=== PATIENT | male | born 1980 | race Caucasian/White ===

== ENCOUNTER 2018-11-05 07:50 | Outpatient (CLI) | payer BC, SELFPAY ==
--- NOTE | 2018-11-05 09:20 | DI.RAD_ITS ---
SYMPTOMS/DIAGNOSIS: SHOULDER JOINT PAIN RT, M25.511 RIGHT SHOULDER: Five views were obtained. No bony or soft tissue abnormality seen.
== END 2018-11-05 08:10 ==
PROVIDERS: PCP Nurse Practitioner Family; Visit Provider Nurse Practitioner Family
DX: M25.511 Pain in right shoulder (principal)
CPT/HCPCS: 73030

== ENCOUNTER 2018-11-13 00:39 | Outpatient (CLI) | payer BC, SELFPAY ==
--- NOTE | 2018-11-13 08:38 | DI.MRI_ITS ---
SYMPTOM/DIAGNOSIS: RT SHOULDER PAIN, M25.511, SWELLING NEAR SCAPULA RIGHT SHOULDER MRI: MRI examination of the shoulder was performed according to the usual protocol. There is mildly abnormal signal in the humeral head which may be on a degenerative basis. There is some narrowing of the acromial outlet with an inferior acromial spur causing some apparent impingement on supraspinatus tendon. Mildly abnormal signal noted in supraspinatus tendon consistent with a tendinosis. There is a small amount of fluid in the subacromial bursa. Mildly abnormal signal also noted in infraspinatus tendon near its humeral attachment. Superior edge of the supraspinatus shows abnormal signal as well and there may be a small partial thickness tear at this site. The biceps tendon shows normal signal and is normally positioned. Glenoid labrum appears intact as visualized. CONCLUSION: Findings suggesting supraspinatus and infraspinatus impingement at the acromial outlet. No full thickness or retracted rotator cuff tear seen. Small partial thickness tears and/or tendinosis may be present at a few sites as described above involving supraspinatus and infraspinatus and subscapularis. Please note that the patient also has question of swelling near the spine of the scapula and this area was not evaluated on this shoulder MRI. If clinically indicated, MR of the scapula could be obtained to rule out a mass.
== END 2018-11-13 00:59 ==
PROVIDERS: PCP Nurse Practitioner Family; Visit Provider Nurse Practitioner Family
DX: M25.511 Pain in right shoulder (principal); M75.41 Impingement syndrome of right shoulder; M79.89 Other specified soft tissue disorders
CPT/HCPCS: 73221

== ENCOUNTER 2019-08-18 12:03 | Outpatient (CLI) | payer BC, SELFPAY ==
--- NOTE | 2019-08-18 12:05 | DI.RAD_ITS ---
EXAM: XR FINGER RT INDEX INDICATION: pain and swelling post blunt trauma, M79.644. COMPARISON: No previous for comparison. TECHNIQUE: 2D digital imaging was performed. FINDINGS: There are 2 tiny faint densities anterior to the proximal interphalangeal joint of the right index fi nger. These are of uncertain acuity. These may represent old or acute avulsion fractures. Please c orrelate with patient's site of pain.
== END 2019-08-18 12:23 ==
PROVIDERS: PCP Nurse Practitioner Family; Visit Provider Nurse Practitioner Family
DX: M79.644 Pain in right finger(s) (principal); R22.31 Localized swelling, mass and lump, right upper limb; M89.8X4 Other specified disorders of bone, hand
CPT/HCPCS: 73140

== ENCOUNTER 2020-08-07 01:11 | Outpatient (CLI) | payer BC, SELFPAY ==
--- NOTE | 2020-08-07 | DI.RAD_ITS ---
EXAM: XR WRIST RT COMPLETE CLINICAL HISTORY: RT WRIST PAIN,M25.531. TECHNIQUE: 2D digital imaging was performed. COMPARISON: No exams were available for comparison FINDINGS: There is no evidence of fracture or carpal dislocation. No radiopaque foreign body. No significant ulnar variance. Bone density is normal. No osseous lesions. IMPRESSION: No fracture evident. DATA REPOSITORY: RADIATION DOSE DELIVERED:
== END 2020-08-07 01:31 ==
PROVIDERS: PCP Nurse Practitioner Family; Visit Provider Family Medicine
DX: M25.531 Pain in right wrist (principal)
CPT/HCPCS: 73110

== ENCOUNTER 2021-03-12 11:22 | Outpatient (REF) | payer BC, SELFPAY ==
[2021-03-14 15:24] LABS: Chlamydia Result Negative (Negative); GC Result Negative (Negative)
== END 2021-03-12 11:23 | disposition home or self-care (01) ==
LOC: LBN 11:22
PROVIDERS: PCP Nurse Practitioner Family; Visit Provider Nurse Practitioner Family
DX: N50.811 Right testicular pain (principal)
CPT/HCPCS: 87491; 87591

== ENCOUNTER 2021-05-29 10:52 | Outpatient (REF) | payer BC, SELFPAY ==
[2021-05-30 17:19] LABS: COVID-19 RT-PCR UVMMC Result Negative (Negative)
== END 2021-05-29 10:53 | disposition home or self-care (01) ==
LOC: LBN 10:52
PROVIDERS: PCP Nurse Practitioner Family; Visit Provider Family Medicine
DX: Z20.822 Contact with and (suspected) exposure to COVID-19 (principal); J02.9 Acute pharyngitis, unspecified
CPT/HCPCS: U0003

== ENCOUNTER 2023-01-29 20:40 | Emergency (ER) | payer BC, SELFPAY ==
[2023-01-29 20:50] VITALS: BP 126/70; PULSE 66; RESP 20; TEMP 36.6; O2SAT 97
--- NOTE | 2023-01-29 22:22 | W.ED.GENAD ---
Discharge Plan Disposition Patient Disposition: Home Condition: Stable Discharge Details Clinical Impression: Varicose veins of right lower extremity Primary Care Provider: Tamiko Delgado ED Provider: Susan Segovia Home Meds and New Rx's Prescriptions: No Action levofloxacin 500 mg tablet 500 mg PO DAILY Discharge Instructions Instructions: Phlebitis (ED) Additional Instructions: Please return as soon as possible for an ultrasound to rule out blood clots. Keep compression socks or similar on to the area elevate you may alternate ice and heat. Please take Tylenol or Ibuprofen with food every 4-6 hours as needed for pain and swelling. Follow up with primary care provider in 3-5 days. Return to ED sooner if any worsening or concerns. Increase oral fluids. Consider following up with a vascular surgeon or specialist for further management. Referrals: Tamiko Delgado [Primary Care Provider] - 3 days Discharge Data Discharge Date/Time-TO BE ENTERED AT DEPARTURE: 01/29/23 22:38 Medical Decision Making 42-year-old male presents to the ER with a chief complaint of varicose veins that are swollen and tender to the touch on his right leg. He noticed that this morning. 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 He has never noted pain in the past. No other associated symptoms or concerns no recent trauma. No surrounding erythema. Ultrasound Doppler ordered for tomorrow to rule out blood clot. Differential diagnosis includes thrombophlebitis versus DVT. Instructed patient to rest ice compression elevation. Follow-up for outpatient ultrasound soon as possible. He verbalized understanding. This text was generated using [employer] dictation system, please disregard any oddities of phrase or misspellings. HPI General Mode of arrival: ambulatory. Date/Time Provider Initiated Documentation: 01/29/23 20:41. Limitations to Documentation: no limitations. Information obtained by: patient, RN notes reviewed and old records reviewed. HPI Narrative: 42-year-old male presents to the ER with a chief complaint of varicose veins that are swollen and tender to the touch on his right leg. He noticed that this morning. 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 He has never noted pain in the past. No other associated symptoms or concerns no recent trauma. No surrounding erythema. Related Data Home Medications Medication Instructions Recorded Confirmed levofloxacin 500 mg tablet 500 mg PO DAILY 03/14/21 Allergies Allergy/AdvReac Type Severity Reaction Status Date / Time No Known Allergies Allergy Verified 08/18/19 12:29 General Stated Complaint: GenMedical REMBERTO: 4 Review of Systems All systems reviewed & are unremarkable except as noted in HPI and below Musculoskeletal Musculoskeletal: Reports as per HPI Integumentary/Breasts Skin/Breast: Reports as per HPI, Reports skin pain and Reports skin swelling PFSH All Active Problems (Updated 01/29/23 @ 22:35 by Susan Segovia NP) Varicose veins of right lower extremity (Acute) Finger pain, right (Acute) Medical History Allergic rhinitis Testicular pain Social History Smoking/Tobacco Use Status: Former Tobacco Use Smokeless tobacco user: chewing tobacco Smoking risk assessment performed?: Yes Alcohol Intake: current Alcohol Intake frequency: a few times a month Substance use type: does not use Seatbelt use: always Exam Extrem Right lower extremity: lower leg (veins run from ankle up into thigh) Details: localized swelling and palpable cord; no unusual warmth Course Vital Signs Vital signs: Vital Signs Temperature 36.6 C 01/29/23 20:50 Pulse 66 01/29/23 20:50 Respiratory Rate 20 01/29/23 20:50 Blood Pressure 126/70 01/29/23 20:50 Pulse Oximetry 97 01/29/23 20:50 Temperature 36.6 C 01/29/23 20:50 Pulse 66 01/29/23 20:50 Respiratory Rate 20 01/29/23 20:50 Blood Pressure 126/70 01/29/23 20:50 Blood Pressure Position Sitting 01/29/23 20:50 Pulse Oximetry 97 01/29/23 20:50 Oxygen Delivery Method Room Air 01/29/23 20:50 Oxygen Flow Rate 0 01/29/23 20:50 Pain Level 3 01/29/23 20:50
--- NOTE | 2023-01-30 01:23 | NUR.NOTE ---
Ultra sound req faxed to DI for RLE study álvaro. Patient advised to call [phone] to make appt.Nursing Note:
== END 2023-01-29 22:38 | disposition home or self-care (01) ==
PROVIDERS: Emergency Provider Registered Nurse Emergency; PCP Nurse Practitioner Family
DX: I83.91 Asymptomatic varicose veins of right lower extremity (principal)
CPT/HCPCS: 99281; 99282

== ENCOUNTER 2023-02-04 09:31 | Emergency (ER) | payer BC, SELFPAY ==
[2023-02-04 09:32] VITALS: BP 133/84; PULSE 55; RESP 15; TEMP 36.8; O2SAT 99
[2023-02-04 10:35] LABS: Abs Immature Grans 0.01 10^3/uL (0.0-0.06); Absolute Basophil Count 0.04 10^3/uL (0.0-0.2); Absolute Eosinophil Count 0.39 10^3/uL (0.0-0.7); Absolute Lymphocyte Count 1.58 10^3/uL (1.2-3.4); Absolute Monocyte Count 0.47 10^3/uL (0.1-0.8); Absolute Neutrophil Count 2.77 10^3/uL (1.2-6.7); Basophils % 0.8; Eosinophils % 7.4; HCT 41.1 % (40.0-50.0); HGB 13.3 g/dL (13.5-17.5); Immature Grans % 0.2; MCH 27.4 pg (27.0-33.0); MCHC 32.4 % (32.0-36.0); MCV 85 fL (80-95); MPV 11.5 fL (8.0-11.0); Monocytes % 8.9; Neutrophils % 52.7; Platelet Count 228 10^3/uL (130-400); RBC 4.85 10^6/uL (4.36-5.78); RDW 15.3 % (11.8-14.1); RDW-SD 47.5 fL; WBC 5.26 10^3/uL (4.4-10.8)
[2023-02-04 10:55] LABS: ALT 24 U/L (16-63); AST 28 U/L (15-37); Albumin 4.1 g/dL (3.4-5.0); Alkaline Phosphatase 62 U/L (46-116); Anion Gap 7.1 mmol/L (3-11); BUN 9 mg/dL (7-18); Bilirubin, Total 0.7 mg/dL (0.2-1.0); CO2 28.9 mmol/L (21.0-32.0); CREATININE 0.8 mg/dL (0.70-1.30); Calcium 9.3 mg/dL (8.5-10.1); Chloride 102 mmol/L (98-107); Estimated GFR 114.74 (mL/min/1.73m2); Glucose 95 mg/dL (74-106); Potassium 4.7 mmol/L (3.5-5.1); Sodium 138 mmol/L (136-145); Total Protein 7.9 g/dL (6.4-8.2)
--- NOTE | 2023-02-04 11:29 | NUR.NOTE ---
Nursing Note: Referral given to [facility] [place] [facility] [place] [place], varicose vein extensive supreficial thrombophlebitis/within the next month. Referral faxed to PCP for extensive superficial thrombophlebitis/within 1 week.
[2023-02-04] MEDS: Rivaroxaban 10 MG TABLET PO (11:47)
--- NOTE | 2023-02-04 11:59 | NUR.NOTE ---
Nursing Note: US sent electronically to [facility]. Labs and US report given to pt for continuing care @ [facility] Vascular Surgery.
--- NOTE | 2023-02-04 16:30 | ED.GENADUL_ITS ---
Discharge Plan Disposition Patient Disposition: Home Discharge Details Clinical Impression: Superficial thrombophlebitis Primary Care Provider: Tamiko Delgado ED Provider: Jenise Thrasher Home Meds and New Rx's Prescriptions: New Xarelto 10 mg tablet 10 mg PO DAILY Qty: 45 0RF Rx Instructions: for 35 days Continued levofloxacin 500 mg tablet 500 mg PO DAILY Patient Comments: RX complete 02/04/23 CT Discharge Instructions Instructions: Superficial Thrombophlebitis (ED), Deep Vein Thrombosis (ED) Additional Instructions: You have an extensive superficial thrombophlebitis, after discussion with [facility], recommendation is to start you on Xarelto 10 mg daily for 45 days The recommendation after that is to follow-up with vascular surgery for evaluation of your varicose vein for potential surgery While you are on Xarelto you are at significant increased risk of bleeding, if develop blood in your stool, headache, or any trauma to your head, abdomen, pelvis, blood in your urine you should be reassessed immediately Do not take ibuprofen products/nonsteroidals while taking this medication Please call your doctor in the let them know you will need close outpatient reassessment, you have also been placed on the list for follow-up Referrals: Tamiko Delgado [Primary Care Provider] - Discharge Data Discharge Date/Time-TO BE ENTERED AT DEPARTURE: 02/04/23 11:48 Medical Decision Making Patient with extensive varicosities with suspected superficial thrombophlebitis and reviewed ultrasound, this was discussed with radiologist Labs are ordered as my concern is that we may need to start anticoagulation given 15 cm superficial thrombophlebitis with extension to the thigh varicose vein Case was discussed with Dr. Hernandez, inspector tool at [facility] and the recommendation is for Xarelto 10 mg daily for 45 days He will be referred to vascular for vein stripping in the outpatient setting, there is no evidence of DVT or PE clinically at time of assessment Had a's and extensive discussion with this patient and he is aware that he cannot run in ultramarathon or continue running while this thrombophlebitis persists as the extension into the deep vasculature is significantly high He is aware of this is agreeable to taking Xarelto at this time, prescription was sent to pharmacy He will follow-up with [facility], referral has been supplied to vascular surgery and PCP for will be needed in the next week Return precautions reviewed and patient expressed understanding Precautions regarding taking Xarelto were reviewed in detail with patient HPI General Date/Time Provider Initiated Documentation: 02/04/23 09:44 . HPI Narrative: This 42-year-old male presents with persistent leg swelling and pain to her right leg, after ultrasound. He has a extensive superficial thrombophlebitis per radiology interpretation. Patient denies any new complaints at time of assessment. 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 He denies any known trauma to the affected area, recent flights, surgeries, long drives. Related Data Home Medications Medication Instructions Recorded Confirmed levofloxacin 500 mg tablet 500 mg PO DAILY 03/14/21 rivaroxaban 10 mg tablet (Xarelto) 10 mg PO DAILY #45 tabs 02/04/23 Previous Rx's Medication Instructions Recorded rivaroxaban 10 mg tablet (Xarelto) 10 mg PO DAILY #45 tabs 02/04/23 Allergies Allergy/AdvReac Type Severity Reaction Status Date / Time No Known Allergies Allergy Verified 02/04/23 09:39 General Stated Complaint: Recheck REMBERTO: 4 PFSH All Active Problems (Updated 02/04/23 @ 11:25 by EARNESTINE Hare) Varicose veins of right lower extremity (Acute) Superficial thrombophlebitis (Acute) Finger pain, right (Acute) Medical History Allergic rhinitis Testicular pain Social History Smoking/Tobacco Use Status: Former Tobacco Use Smokeless tobacco user: chewing tobacco Smoking risk assessment performed?: Yes Alcohol Intake: current Alcohol Intake frequency: a few times a month Drug use: Never Substance use type: does not use Housing: house Seatbelt use: always Do you feel safe at home: Yes Do you feel safe in your relationship?: Yes Course Vital Signs Vital signs: Vital Signs Temperature 36.8 C 02/04/23 09:32 Pulse 55 L 02/04/23 09:32 Respiratory Rate 15 02/04/23 09:32 Blood Pressure 133/84 02/04/23 09:32 Pulse Oximetry 99 02/04/23 09:32 Temperature 36.8 C 02/04/23 09:32 Temperature Source Temporal Artery Scan 02/04/23 09:32 Pulse 55 L 02/04/23 09:32 Respiratory Rate 15 02/04/23 09:32 Respiratory Effort Normal 02/04/23 09:37 Blood Pressure 133/84 02/04/23 09:32 Blood Pressure Position Sitting 02/04/23 09:32 Pulse Oximetry 99 02/04/23 09:32 Oxygen Delivery Method Room Air 02/04/23 09:32 Oxygen Flow Rate 0 02/04/23 09:32 Pain Level 2 02/04/23 09:32 Lab/Test Results Lab/Test Results: Laboratory Tests Range/Units 02/04/23 02/04/23 10:10 10:10 WBC (4.4-10.8) 10^3/uL 5.26 RBC (4.36-5.78) 10^6/uL 4.85 Hgb (13.5-17.5) g/dL 13.3 L Hct (40.0-50.0) % 41.1 MCV (80-95) fL 85 MCH (27.0-33.0) pg 27.4 MCHC (32.0-36.0) % 32.4 RDW (11.8-14.1) % 15.3 H Plt Count (130-400) 10^3/uL 228 MPV (8.0-11.0) fL 11.5 H Immature Gran % 0.2 Neutrophils % 52.7 Lymphocytes % 30.0 Monocytes % 8.9 Eosinophils % 7.4 Basophils % 0.8 Nucleated RBC % (0.0-0.3) % 0.0 Absolute Neutrophils (1.2-6.7) 10^3/uL 2.77 Absolute Lymphocytes (1.2-3.4) 10^3/uL 1.58 Absolute Monocytes (0.1-0.8) 10^3/uL 0.47 Absolute Eosinophils (0.0-0.7) 10^3/uL 0.39 Absolute Basophils (0.0-0.2) 10^3/uL 0.04 Sodium (136-145) mmol/L 138 Potassium (3.5-5.1) mmol/L 4.7 Chloride (98-107) mmol/L 102 Carbon Dioxide (21.0-32.0) mmol/L 28.9 Anion Gap (3-11) mmol/L 7.1 BUN (7-18) mg/dL 9 Creatinine (0.70-1.30) mg/dL 0.8 Est GFR (CKD-EPI 2020) (mL/min/1.73m2) 114.74 Glucose (74-106) mg/dL 95 Calcium (8.5-10.1) mg/dL 9.3 Total Bilirubin (0.2-1.0) mg/dL 0.7 AST (15-37) U/L 28 ALT (16-63) U/L 24 Alkaline Phosphatase (46-116) U/L 62 Total Protein (6.4-8.2) g/dL 7.9 Albumin (3.4-5.0) g/dL 4.1 PAWSS Have you Been Recently Intoxicated or Drunk Within the Last 30 days?: No Have you Ever Experienced Previous Episodes of Alcohol Withdrawal?: No Have you ever Experienced Withdrawal Seizures?: No Have you ever Experienced Delirium Tremens(DT)s?: No Have you ever undergone Alcohol Rehabilitation Treatment (i.e, inpt ot outpatient treatment programs)?: No Have you ever Experienced Blackouts?: No Have you ever Combined Alcohol with other Downers within the last 90 days?: No Have you ever Combined Alcohol with any other Substance of Abuse during the last 90 days?: No Result: 0
--- NOTE | 2023-02-05 15:51 | CMACTNOTE_ITS ---
Date of service: 02/05/23 Time of Service: 15:51 Care Management Activity Note Activity Note Text Activity Note Text: Vishal is seen in the ED for an extensive superficial thrombophlebitis. At the request of ED provider, ISAAC coordinates a referral to [facility] to assist patient with obtaining an appointment. He has [facility] [place] for insurance.
--- NOTE | 2023-02-05 15:51 | PDOC.CMACT ---
Date of service: 02/05/23 Time of Service: 15:51 Care Management Activity Note Activity Note Text Activity Note Text: Vishal is seen in the ED for an extensive superficial thrombophlebitis. At the request of ED provider, ISAAC coordinates a referral to [facility] to assist patient with obtaining an appointment. He has [facility] [place] for insurance.
== END 2023-02-04 11:48 | disposition home or self-care (01) ==
PROVIDERS: Emergency Provider Physician Assistant; PCP Nurse Practitioner Family
DX: I80.01 Phlebitis and thrombophlebitis of superficial vessels of right lower extremity (principal)
CPT/HCPCS: 80053; 99283; 85025; 99284

== ENCOUNTER → 2023-05-28 02:40 | Outpatient (CLI) | payer BC, SELFPAY ==
--- NOTE | 2023-05-28 | DI.RAD_ITS ---
Exam(s) XR ANKLE RT COMPLETE EXAM: XR ANKLE RT COMPLETE CLINICAL HISTORY: RT ANKLE PAIN M25.571. TECHNIQUE: 2D digital imaging was performed. Three views. COMPARISON: No exams were available for comparison FINDINGS: BONES: No acute fracture is present. No bony destructive lesion is seen. Talar dome is smooth. En thesophyte at Achilles insertion on the calcaneus. JOINTS: The ankle mortise is normally aligned. Tibiotalar joint space is maintained. SOFT TISSUE: Normal. IMPRESSION: Unremarkable radiographs of the right ankle. DATA REPOSITORY: RADIATION DOSE DELIVERED:
--- NOTE | 2023-05-28 | DI.RAD_ITS ---
Exam(s) XR FOOT RT COMPLETE EXAM: XR FOOT RT COMPLETE CLINICAL HISTORY: RT ANKLE PAIN M25.571. TECHNIQUE: 2D digital imaging was performed. Three views. COMPARISON: No exams were available for comparison FINDINGS: BONES: No acute fracture is present. No bony destructive lesion is seen. Enthesophyte at Achilles in sertion on calcaneus. JOINTS: No dislocation present. Minimal degenerative changes. SOFT TISSUE: Normal. IMPRESSION: No acute abnormality. DATA REPOSITORY: RADIATION DOSE DELIVERED:
== END ==
PROVIDERS: PCP Nurse Practitioner Family; Visit Provider Family Medicine
DX: M25.571 Pain in right ankle and joints of right foot (principal)
CPT/HCPCS: 73610; 73630

== ENCOUNTER 2023-06-24 21:13 | Outpatient (REF) | payer BC, SELFPAY ==
[2023-06-24 21:54] LABS: D-Dimer 375 ng/mlFEU (<500)
== END 2023-06-24 21:14 | disposition home or self-care (01) ==
LOC: LBN 21:13
PROVIDERS: PCP Nurse Practitioner Family; Visit Provider Nurse Practitioner Family
DX: M79.661 Pain in right lower leg (principal)
CPT/HCPCS: 85379

== ENCOUNTER 2024-08-02 02:56 | Outpatient (CLI) | payer BC, SELFPAY ==
--- NOTE | 2024-08-02 10:31 | DI.RAD_ITS ---
Exam(s) XR FOOT RT COMPLETE EXAM: XR FOOT RT COMPLETE CLINICAL HISTORY: PTTD right foot,M76.821. TECHNIQUE: 2D digital imaging was performed of the right foot. Three images were obtained. AP, obl ique and lateral views were obtained. COMPARISON: CR XR FOOT RT COMPLETE from 05/28/2023 FINDINGS: BONES: No acute fracture is present. No bony destructive lesion is seen. There is an enthesophyte at the posterior calcaneus. JOINTS: No dislocation present. SOFT TISSUE: There is soft tissue swelling lateral to the 5th metatarsophalangeal joint. No soft tis chicho calcification or underlying bony erosions. No soft tissue gas is present. IMPRESSION: 1. No acute abnormality is identified. 2. Mild soft tissue swelling lateral to the 5th MTP joint without evidence of erosion or arthritis. Please correlate clinically. DATA REPOSITORY: RADIATION DOSE DELIVERED:
--- NOTE | 2024-08-02 10:31 | DI.RAD_ITS ---
Exam(s) XR FOOT LT COMPLETE EXAM: XR FOOT LT COMPLETE CLINICAL HISTORY: Hallux IPJ pain,DJD LT ANKLE AND FOOT,M19.072. TECHNIQUE: 2D digital imaging was performed of the left foot. Three images were obtained. AP, obli que and lateral views were obtained. COMPARISON: No exams were available for comparison FINDINGS: BONES: No acute fracture is present. No bony destructive lesion is seen. There is a bipartite medial sesamoid adjacent to the head of the 1st metatarsal. There is a small enthesophyte at the posterior calcaneus. There is a small plantar calcaneal spur. JOINTS: No dislocation present. The joint spaces are well maintained. SOFT TISSUE: Normal. IMPRESSION: Calcaneal spurs. DATA REPOSITORY: RADIATION DOSE DELIVERED:
== END 2024-08-02 03:16 ==
LOC: DI 02:56
PROVIDERS: PCP Nurse Practitioner Family; Visit Provider Podiatrist
DX: M19.072 Primary osteoarthritis, left ankle and foot (principal); M76.821 Posterior tibial tendinitis, right leg
CPT/HCPCS: 73630

== ENCOUNTER 2024-08-26 13:33 | Outpatient (CLI) | payer BC, SELFPAY ==
--- NOTE | 2024-08-26 11:45 | DI.RAD_ITS ---
Exam(s) XR FOOT LT LIMITED EXAM: XR FOOT LT LIMITED CLINICAL HISTORY: M76.821 M72.822 TIBIAL TENDINITIS BILAT. TECHNIQUE: 2D digital imaging was performed of the left foot. One images were obtained. AP, obliqu e and lateral views were obtained. COMPARISON: CR XR FOOT LT COMPLETE from 08/02/2024 FINDINGS: Note is again made of bipartite medial sesamoid at the head of the 1st metatarsal bone. There is an accessory ossicle seen at the medial aspect of the navicular. The soft tissues are grossly unremarka ble. IMPRESSION: DATA REPOSITORY: RADIATION DOSE DELIVERED:
--- NOTE | 2024-08-26 11:45 | DI.RAD_ITS ---
Exam(s) XR FOOT RT LIMITED EXAM: XR FOOT RT LIMITED CLINICAL HISTORY: M76.821 TIBIAL TENDINITIS RT LEG. TECHNIQUE: 2D digital imaging was performed of the right foot. One images were obtained. Views w ere obtained. COMPARISON: CR XR FOOT RT COMPLETE from 05/28/2023 CR XR ANKLE RT COMPLETE from 05/28/2023 CR XR FOOT RT COMPLETE from 08/02/2024 FINDINGS: This is a limited examination. The bones are normally mineralized. The visualized joint spaces are well maintained. The soft tissues are unremarkable. IMPRESSION: DATA REPOSITORY: RADIATION DOSE DELIVERED:
--- OUTSIDE RECORDS SUMMARY | 2024-08-26 13:35 | XMS_ITS | Encounter Summary ---
Author Organization [facility] Address [address] [place] [address] Care Team Providers Care Group Reservations Coordinator Name Role Phone Gogo Monzon MD Primary Care Provider [phone] Reason for Visit * Reason Onset Date Comments Coordination Of Care 07/07/2023 Encounter Details Date Type Department Care Team (Late st Contact Info) Description 07/07/2023 Telephone [facility] Hematology & Oncology - [address] [address] Marcia Jackson PA-C [address] [place] [address], [address] [place] [address] Coordination Of Care Social History Tobacco Use Types Packs/Day Years Used Date Smoking Tobacco: Never Smokeless Tobacco: Former Chew Quit: 2022 Comments:Off all nicotine no w Alcohol Use Standard Drinks/Week Comments Yes 4 (1 standard drink = 0.6 oz pur e alcohol) Sex and Gender Information Value Date Recorded Sex Assigned at Not on file Legal Sex Male 10:44 EDT Gender Identity Male 03/03/2023 8:17 EDT Sexual Orientation Not on file documented as of this encounter Miscellaneous Notes * Telephone Encounter - Huey Andre - 07/07/2023 0905 EST Violetta called asking to speak to someone regarding patient's thrombis. States they are having a vein procedure scheduled the first week of July documented in this encounter Plan of Treatment Not on file documented as of this encounter Visit Diagnoses Not on filedocumented in this encounter Care Teams Group Reservations Coordinator Relationship Specialty Start Date End Date Gogo Monzon MD [address] [place] [address] PCP - General Family Medicine - Primary Care 03/03/23 documented as of this encounter
--- OUTSIDE RECORDS SUMMARY | 2024-08-26 13:35 | XMS_ITS | Encounter Summary ---
[place] [address] Care Team Providers Care Bottle Machine Operator Name Role Phone Tamiko Delgado SAQIB Primary Care Provider [phone] Reason for Referral * Consultation (Routine) - Closed Specialty Diagnoses / Procedures Referred By Fan lopez Referred To Contact Hematology and Oncology Diagnoses Thrombophlebitis Ever Hitchcock MD [address] [place] [address] [facility] [address] [place] [address] Referral ID Status Reason Start Date Expiration Date V isits Requested Visits Authorized [id number] Closed Consult, Test & Treat PCP Updated and/or Approved 02/12/2023 02/12/2024 6 6 Encounter Details Date Type Department Care Team (Late st Contact Info) Description 02/12/2023 Transcribe Orders eDH Incoming Referrals [phone] Ever Hitchcock MD [address] [place] [address] Thrombophlebitis Social History Tobacco Use Types Packs/Day Years Used Date Smoking Tobacco: Never Assessed Sex and Gender Information Value Date Recorded Sex Assigned at Not on file Gender Identity Not on file Sexual Orientation Not on file documented as of this encounter Plan of Treatment Scheduled Referrals Name Type Priority Associated Diagnoses Order Schedule Referral to Hematology and Oncology Outpatient Referral Routine Thrombophlebitis Ordered: 02/12/2023 documented as of this encounter Visit Diagnoses Diagnosis Thrombophlebitis Phlebitis and thrombophlebitis of unspecified site documented in this encounter Care Teams Bottle Machine Operator Relationship Specialty Start Date End Date Tamiko Delgado APRN [address] [place] [address] PCP - General Family Medicine 02/11/23 documented as of this encounter
--- OUTSIDE RECORDS SUMMARY | 2024-08-26 13:35 | XMS_ITS | Encounter Summary ---
Author Organization [facility] Address [facility] [place] [address] Care Team Providers Care Peanut Butter Maker Name Role Phone None Primary Care Provider Unavailabl e Encounter Details Date Type Department Care Team (Late st Contact Info) Description 02/04/2023 Telephone Hematology [place] [phone] Georgiana Mendez MD [facility] DR HEMATOLOGY/[place] [address] Social History Tobacco Use Types Packs/Day Years Used Date Smoking Tobacco: Never Assessed Sex and Gender Information Value Date Recorded Sex Assigned at Not on file Gender Identity Not on file Sexual Orientation Not on file documented as of this encounter Miscellaneous Notes * Telephone Encounter - Georgiana Mendez MD - 02/04/2023 11:03 AM EDT I was called from Jenise Thrasher at [facility] regarding the management for SVT. 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 He was found to have extensive superficious venous thrombosis for 15cm from medial thigh to distal calf. There was no evidence of DVT and he has no other risk factor for DVT except for varicose veins. Due to the extent of the disease, he is deemed to have SVT with elevated risk features, where prophylactic anticoagulation for 45 days is indicated. The best evidence exists for fondaparinux but due to the ease of administration, using rivaroxaban 10mg daily is an acceptable alternative. So I recommended rivaroxaban 10mg daily for 45 days. Georgiana Mendez MD [facility] Hematology Oncology Fellow Page [phone] documented in this encounter Plan of Treatment Not on file documented as of this encounter Visit Diagnoses Not on filedocumented in this encounter Care Teams Peanut Butter Maker Relationship Specialty Start Date End Date None None PCP - General 02/04/23 02/10/23 documented as of this encounter
--- OUTSIDE RECORDS SUMMARY | 2024-08-26 13:35 | XMS_ITS | Encounter Summary ---
Author Organization [facility] [place] [address] Care Team Providers Care Shank Piece Tacker Name Role Phone Tamiko Delgado APRN Primary Care Provider [phone] Encounter Details Date Type Department Care Team (Late st Contact Info) Description 06/17/2023 Telephone [place] [phone] Floresita Sebastian Social History Tobacco Use Types Packs/Day Years Used Date Smoking Tobacco: Never Smokeless Tobacco: Former Chew Quit: 2021 Sex and Gender Information Value Date Recorded Sex Assigned at Not on file Gender Identity Not on file Sexual Orientation Not on file documented as of this encounter Miscellaneous Notes * Telephone Encounter - Floresita Sebastian - 06/17/2023 1:40 PM EST Received call from Mr. Ramirez looking to schedule Surgery with Dr. Velasco - We have scheduled this for 07/30/23. Letter sent. documented in this encounter Plan of Treatment Not on file documented as of this encounter Visit Diagnoses Not on filedocumented in this encounter Care Teams Shank Piece Tacker Relationship Specialty Start Date End Date Tamiko Delgado APRN [address] [place] [address] PCP - General Family Medicine 02/11/23 documented as of this encounter
--- OUTSIDE RECORDS SUMMARY | 2024-08-26 13:35 | XMS_ITS | Encounter Summary ---
Author Organization [facility] [place] [address] Care Team Providers Care Engraver Lettering Name Role Phone DannyTamiko SAQIB Primary Care Provider [phone] Reason for Referral * Diagnostic Test (Routine) - Closed Specialty Diagnoses / Procedures Referred By Fan lopez Referred To Contact Diagnoses Varicose veins of right lower extremity with pain Thrombophlebitis Procedures LE Unilateral Valvular Incomp Study Mikayla Cesar APRN [facility] [place] [address] [facility] [address] [place] [address] Referral ID Status Reason Start Date Expiration Date V isits Requested Visits Authorized [id number] Closed Specialty Service Requested 02/13/2023 02/13/2024 1 1 Encounter Details Date Type Department Care Team (Late st Contact Info) Description 02/13/2023 Orders [place] [address] Mikayla Cesar TAFFY CANDY MAKER [facility] [place] [address] Varicose veins of right lower extremity with pain; Thrombophlebitis Social History Tobacco Use Types Packs/Day Years Used Date Smoking Tobacco: Never Assessed Sex and Gender Information Value Date Recorded Sex Assigned at Not on file Gender Identity Not on file Sexual Orientation Not on file documented as of this encounter Plan of Treatment Not on file documented as of this encounter Results * LE Unilateral Valvular Incomp Study (04/09/2023 10:49 AM EDT) VB Text Report Department: Vascular Surgery Lab Patient: [id number] (VISHAL MÁRQUEZ) CPT: 60518 Referring Physician: MIKAYLA CESAR ?? Phone: Indications: RLE thrombophlebitis, varicose veins ? Venous insufficiency Patient Positioning: ??Reverse Trendelenburg Findings: Right ?Reflux?Diameter (mm) ??Depth (mm) ?? Common Femoral Vein ??Competent ? Femoral Vein ? Competent ? Popliteal ?Competent ? GSV, Near SFJ ?Reflux ? 3.3 ?10.3 ?? GSV, Proximal Thigh ??Competent ?3.1 ? 8.2 ?? GSV, Mid Thigh ? Reflux ? 8.9 ? 5.9 ?? GSV, Distal Thigh ?Reflux ? 2.9 ? 5.9 ?? GSV, ??Knee ? Competent ?2.5 ? 6.5 ?? GSV Prox Calf ?Competent ?3.0 ? 4.6 ?? GSV, Mid Calf ?Reflux ? 3.0 ? 2.7 ?? GSV, Distal Calf ? Reflux ? 2.5 ? 4.3 ?? SSV ?Competent ?4.6 ? 3.9 ?? Prox ASV ? Competent ?3.4 ? 8.0 ?? Mid ASV ?Competent ?2.0 ? 4.3 ?? Interpretation: Right: Findings consistent with superficial venous valvular incompetence at the saphenofemoral junction and great saphenous vein from the mid thigh to distal thigh, and from mid calf to distal calf (reflux time >4.3 seconds). Incompetent infantry weapons officer vein (5 mm diameter) originates from the GSV at mid thigh. Varicose veins originate from the GSV at the distal thigh and at mid calf. Superficial thrombus in the varicose veins at proximal to mid calf, without great saphenous vein phlebitis. No evidence of deep venous valvular incompetence. No evidence of deep (femoropopliteal) thrombus. Comparison: ??No previous study in our vascular lab database for comparison. Electronically Signed by: MILADYS BUCK III, MD on 2023-04-09 12:15:22 PM [facility] VB Text Report End of Report [facility] 04/09/2023 10:4 9 AM EDT Mikayla Cesar APRN VASCULAR ORDERABLES [facility] documented in this encounter Visit Diagnoses Diagnosis Varicose veins of right lower extremity with pain Varicose veins of lower extremities with other complications Thrombophlebitis Phlebitis and thrombophlebitis of unspecified site documented in this encounter Care Teams Engraver Lettering Relationship Specialty Start Date End Date Tamiko Delgado APRN [address] [place] [address] PCP - General Family Medicine 02/11/23 documented as of this encounter
--- OUTSIDE RECORDS SUMMARY | 2024-08-26 13:35 | XMS_ITS | Encounter Summary ---
Author Organization [facility] Address [address] [place] [address] Care Team Providers Care Rolfer Name Role Phone Gogo Monzon MD Primary Care Provider [phone] Reason for Visit * Reason Onset Date Comments Results 04/10/2023 Encounter Details Date Type Department Care Team (Late st Contact Info) Description 04/10/2023 Telephone [facility] Hematology & Oncology - [address] [id number] Marcia Jackson PA-C [address] [place] [address], [address] [place] [address] Results Social History Tobacco Use Types Packs/Day Years [...] encounter Miscellaneous Notes * Telephone Encounter - Mary Jo Ng - 04/10/2023 1341 EDT LABS ENTERED FROM [facility]. Mary Jo Ng 04/10/2023 13:41 documented in this encounter Plan of Treatment Not on file documented as of this encounter Procedures Procedure Name Priority Date/Time Associated Diagnosis Comments COMPREHENSIVE METABOLIC PANEL (ONCOLOGY USE ONLY-INC MG) Routine 02/04/2023 COMPLETE BLOOD COUNT AND DIFFERENTIAL Routine 02/04/2023 documented in this encounter Results * COMPREHENSIVE METABOLIC PANEL (ONCOLOGY USE ONLY-INC MG) (02/04/2023) Calcium, External 9.3 mg/dL [facility] CO2, External 28.9 mmol/L [facility] AST, External 28 U/L [facility] ALT, External 24 [facility] Bilirubin, Total, External 0.7 [facility] Creatinine, External 0.8 mg/dL [facility] Calculated Calcium, External [facility] Anion Gap, External [facility] Total Protein, External 7.9 [facility] Potassium, External 4.7 mmol/L [facility] Total Alkaline Phosphatase, External 62 [facility] Albumin, External 4.1 g/dL [facility] BUN, External 9 mg/dL [facility] GFR, Calculated, External 114.74 [facility] Fasting?, External [facility] Chloride, External 102 mmol/L [facility] Glucose, Serum, External 95 mg/dL [facility] Sodium, External 138 mmol/L [facility] Magnesium, External [facility] Blood VENOUS BLOOD / Unknown 02/04/2023 us Historical Provider CHEMISTRY & BLOOD GAS ORD ERABLES Final Result [facility] * (ABNORMAL) COMPLETE BLOOD COUNT AND DIFFERENTIAL (02/04/2023) WBC, External 5.26 [facility] RBC, External 4.85 [facility] Hemoglobin, External 13.3(A) 13.5 - 17.5 % [facility] HCT, External 41.1 [facility] MCV, External 85 [facility] MCH, External 27.4 g/dL [facility] MCHC, External 32.4 g/dL [facility] PLT, External 228 [facility] RDW-CV, External 15.3(A) 11.8 - 14.1 [facility] Neutrophils, External 52.7 [facility] Lymphocytes, External 30.0 [facility] Monocytes, External 8.9 [facility] Eosinophils, External 7.4 [facility] Basophils, External 0.8 [facility] ABS Neutrophils, External 2.77 [facility] ABS Lymphs, External 1.58 [facility] ABS Monocytes, External 0.47 [facility] ABS Eosinophils, External 0.39 [facility] ABS Basophils, External 0.04 [facility] Blood VENOUS BLOOD / Unknown 02/04/2023 us Historical Provider PACKAGES [employer] DNA PROBE KYLE KING Final Result [facility] documented in this encounter Visit Diagnoses Not on filedocumented in this encounter Care Teams Rolfer Relationship Specialty Start Date End Date Gogo Monzon MD [address] [place] [address] PCP - General Family Medicine - Primary Care 03/03/23 documented as of this encounter
--- OUTSIDE RECORDS SUMMARY | 2024-08-26 13:35 | XMS_ITS | Encounter Summary ---
[place] [address] Care Team Providers Care Auction Clerk Name Role Phone Tamiko Delgado SAQIB Primary Care Provider [phone] Reason for Visit * Auth/Cert (Routine) Specialty Diagnoses / Procedures Referred By Fan lopez Referred To Contact Diagnoses superficial phlebitis, venous insufficiency Procedures PRO ENDOVENOUS RF, 1ST VEIN PRO PHLEB VEINS - EXTREM 20+ ENDOVENOUS ABLATION THERAPY OF INCOMPETENT VEIN, EXTREMITY, FIRST VEIN (WRVU 5.3) STAB PHLEBECTOMY LEONARDO VEINS 1 EXTREMITY MORE 20 INCISIONS (WRVU 6) Juni Velasco III, MD [address] [place] [address] [place] [address] [facility] Referral ID Status Reason Start Date Expiration Date Visits Re quested Visits Authorized [id number] 1 1 Encounter Details Date Type Department Care Team (Late st Contact Info) Description 07/30/2023 12:25 PM EST - 07/30/2023 3:15 PM EST Surgery [facility] [place] [address] Juni Velasco III, MD [address] [place] [address] [place] [address] ENDOVENOUS ABLATION THERAPY OF INCOMPETENT VEIN, EXTREMITY, FIRST VEIN (WRVU 5.3) Social History Tobacco Use Types Packs/Day Years Used Date Smoking Tobacco: Never Smokeless Tobacco: Former Chew Quit: 2021 Tobacco Cessation:Counseling Given: Not Answered Alcohol Use Standard Drinks/Week Comments Yes 1 (1 standard drink = 0.6 oz pur e alcohol) [facility] Inpatient Questions Answer Date Recorded Does Anyone Try to Keep You From Having Contact with Others or Doing Things Outside Your Home? no 07/30/2023 Feels Threatened by Someone no 09/2023 Feels Unsafe at Home or Work/School no 07/30/2023 Physical Signs of Abuse Present no 07/30/2023 Sex and Gender Information Value Date Recorded Sex Assigned at Not on file Gender Identity Not on file Sexual Orientation Not on file documented as of this encounter Last Filed Vital Signs Vital Sign Reading Time Taken Comments Blood Pressure 153/92 07/30/2023 2:31 PM EST Pulse 70 07/30/2023 2:31 PM EST Temperature 36.5 ??C (97.7 ??F) 07/30/2023 2:00 PM ES T Respiratory Rate 16 07/30/2023 2:31 PM EST Oxygen Saturation 100% 07/30/2023 2:31 PM EST Inhaled Oxygen Concentration - - Weight 81.6 kg (180 lb) 07/30/2023 11:17 AM EST Height 182.9 cm (6') 07/30/2023 11:17 AM EST Body Mass Index 24.41 07/30/2023 11:17 AM EST documented in this encounter Discharge Instructions * Discharge Instructions* Lucy Gutierrez RN - 07/30/2023 11:13 AM EST General Anesthesia Discharge Instructions Go home and rest. You may be sleepy for several hours. Take it easy as sudden position changes may cause nausea and/or dizziness. Use caution on stairs. Do not smoke if you are alone. Follow a light to regular diet as tolerated today. If nausea occurs, start with clear liquids, and progress slowly to a regular diet. Do not drive, operate machinery, drink alcoholic beverages or make any legal decisions after havinggeneral anesthesia. The medications given change your reaction time and alter your judgement. IV site -- slight redness is normal, you can use warm compresses. If tenderness and redness increases or foul drainage occurs, please contact your M.D. Patients who have had endotracheal tubes/LMA (tubes used by the anesthesia staff to ensure a safe airway during your operation) may have a sore throat. This is normal and cold liquids or soothing lozenges will help ease this discomfort. Narcotic pain medications can cause constipation, please ask the surgeons office what they recommend for prevention of this. Some non-pharmaceutical means of constipation prevention include increasing intake of fluids, eating more fruits and vegetables as well as fruit juices. If you are uncomfortable and/or unable to urinate within 8 hours of discharge and it is before 5 pm, call your physician. If it is after 5pm go to the closest emergency room or call the hospital still operator at [phone] and ask for physician button facing machine operator covering for your physician. Questions or problems after 5pm or on a weekend: Call the [facility] still operator at and ask for the physician button facing machine operator covering for your doctor. At 1130 am you received 975 mg of acetaminophen- Your next dose should not be taken before 8 hours have passed or as advised by your provider. Next dose not before- 730 PM You should not take more than a total of 3000 mg of acetaminophen in a 24 hour period. You received 30mg of Toradol which is another form of an NSAID medication at 1:45pm. Your next doseshould not be taken before 7:45pm today. * Patient Instructions* Perez Rodriguez PA - 07/30/2023 12:04 PM EST Instructions following Vein Ablation and Stab Phlebectomy Medications: Please start taking your blood thinner, Xarelto, on 07/31/22 in the morning. This is a once a day pill that you will take for two weeks. Activity: You should start walking the day after surgery. When sitting, try to elevate and prop your leg up on pillows as much as possible. No vigorous activity (such as jogging, running, biking) forat least 1 week or until cleared to do so at your follow-up visit. Wound care: Keep wraps on your leg for the next 48 hours. At that point you can remove all dressings and shower. Do not take a bath or swim for at least 2 weeks. You may have Dermabond (medical glue)or steri-strips (pieces of tape) on your skin. Keep them on until they fall off on their own. If you notice the steri-strips begin to peel off, you may trim them. Bruising around the incisions can benormal and will fade over time. Pain Medication: You may take acetaminophen (Tylenol) and ibuprofen (Advil, Motrin) for pain. If your surgeon provides you prescription pain medicine (opioid) you should not drive for 8 hours after taking it. Call Doctor for: Please call if you notice worsening redness or foul-smelling drainage from incision(s), if your pain is not controlled by pain medication or for fevers greater than 101.3F. Follow-up: You will have an ultrasound in 1-7 days after your procedure. If you do not receive the ultrasound appointment at the time of discharge, you will be called with a date and time. You will be seen by your surgeon (or associate provider) in the Vascular Clinic in approximately 2 weeks. Thisclinic appointment will be mailed to you. Please call our office ([phone]) if you do not receive the ultrasound appointment within 2 days or the clinic appointment within 10 days. For any questions or concerns please call [phone] documented in this encounter Medications at Time of Discharge Medication Sig Dispensed Refills Start Date End Date rivaroxaban (Xarelto) 10 mg tablet Take 1 tablet by mouth daily. 14 tablet 07/31/2023 HYDROcodone-acetaminophe n (Schroeder) 5-325 mg tablet Take 1 tablet by mouth every 6 hours as needed for Pain. 10 tablet 07/30/2023 08/12/2023 documented as of this encounter Progress Notes * Lucy Gutierrez RN - 07/30/2023 2:43 PM EST Discharge instructions and medications reviewed with patient and escort. All questions answered andwritten copy sent home with patient. Patient ambulated to car for discharge accompanied by [facility] staff member. documented in this encounter H&P Notes * Perez Rodriguez PA - 07/30/2023 9:41 AM EST Vascular Surgery History and Physical HPI: Per patient's last office visit with Dr. Velasco on 04/09/23: Reason for Visit: Symptomatic right lower extremity varicose veins with phlebitis, venous insufficiency. History of Present Illness: Vishal Ramirez is a 43 y.o. male seen in consultation at the request of Jenise Thrasher PA-C regardingright lower extremity venous problems as above. Right lower extremity venous duplex with reflux testing was performed today and is reviewed below, along with prior imaging studies. He has noted substantial varicose veins of the right lower extremity for 5 or 10 years. Beginning on January 29, he had significant pain localized to the varicosities of the right medial calf. On February 04, phlebitis in varicose veins was documented on duplex at [facility]. He denies any antecedent history of s ignificant travel, immobilization, surgery, or injury. He had 6 weeks of Xarelto---pain in the varicosities resolved within 10 days of beginning Xarelto therapy. He reports 1 other brief episode of pain 2 days ago, unlike the previous and transient. He has no pain currently. This is his first episode of phlebitis. 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 He denies right lower extremity swelling or ulceration. He does note that his mother had varicose veinsand may have had venous blood clots when she had cancer. He denies lower extremity surgery. He had a fracture of the ankle at a young age. He has been using compressive sleeves and knee-high compression stockings since phlebitis onset, he is not certain whether they provide clinical benefit. He sawMarcia Jackson PA-C at [facility] recently, who recommended 10 mg of Xarelto daily for 2 weeks after lower extremity venous surgery, and consideration of venous procedures to eliminate risk of recurrent phlebitis. She did not recommend hypercoagulable testing or anticoagulation currently. He is otherwise quite healthy. He denies heart problems, chest pain or syncope. He denies sleep apnea or dyspnea. He never smoked, did use smokeless tobacco. He denies abdominal pain or problems. Patient denies changes to medical history, recent illnesses, chest pain, dyspnea, fevers, chills, nausea, vomiting. There are no hospital problems to display for this patient. Active Non-Hospital Problems Diagnosis Varicose veins of lower extremities with complications Venous insufficiency of right lower extremity Phlebitis of superficial vein of right lower extremity Review of Systems: A full review encompassing at least 10 organ systems including general, neuro, pulm, cardiac, GI, , MSK, Endo, and Psych was negative other than listed in the HPI. Past Medical History: History reviewed. No pertinent past medical history. Past Surgical History: History reviewed. No pertinent surgical history. Functional Status/Social Hx: No history of tobacco smoking although used chewing tobacco in the past. 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: Social History Socioeconomic History Marital status: Spouse name: Not on file Number of children: Not on file Years of education: Not on file Highest education level: Not on file Occupational History Not on file Tobacco Use Smoking status: Never Smokeless tobacco: Former Types: Chew Quit date: 2021 Substance and Sexual Activity Alcohol use: Not on file Drug use: Not on file Sexual activity: Not on file Other Topics Concern Not on file Social History Narrative Not on file Social Determinants of Health Financial Resource Strain: Not on file Food Insecurity: Not on file Transportation Needs: Not on file Physical Activity: Not on file Intimate Partner Violence: Not on file Housing Stability: Not on file Family Hx: His mother may have had venous blood clots when she had cancer, Mother with varicose veins. History reviewed. No pertinent family history. Medications: No current facility-administered medications on file prior to encounter. No current outpatient medications on file prior to encounter. Allergies: No Known Allergies Physical Exam: Vital Signs: Temp: -- Heart Rate: -- Resp: -- BP: -- SpO2: -- Heart Rate from SpO2: -- BMI: General - NAD, seen with his Neuro - Alert and Oriented, Motor Sensory grossly intact Skin - See lower extremity examination below No carotid bruits Cardiac - RRR, no murmurs Lungs - Clear, equal Abd - Soft, NT, ND, No palpable pulsatile masses Extremities - Right lower extremity: There are large varicose veins from medial distal thigh, throughout the medial lower leg--- these measure up to 8 mm diameter. There is some palpable residual phlebitis of varicosities at the proximal to mid medial calf. There is no erythema or evidence for acute phlebitis. There is no stasis dermatitis, ulcer, or edema. DP and PT pulses are readily palpable. Left lower extremity: No varicose veins. There is no stasis dermatitis, ulcer, or edema. DP and PT pulses are readily palpable. Labs: No results for input(s): WBC, HGB, HCT, PLATELET in the last 72 hours. No results for input(s): NA, K, CL, CO2, BUN, CREATININE, PHOS, CALCIUM in the last72 hours. Studies/Imaging: Right lower extremity venous duplex at [facility] 02/04/23 (report): No DVT, there is phlebitis of varicose veins of the medial distal thigh through distal calf. Right lower extremity venous duplex at [facility] 04/09/23: Findings: Segment Right Reflux? Diameter (mm) Depth (mm) Common Femoral Vein Competent Femoral Vein Competent Popliteal Competent GSV, Near SFJ Reflux 3.3 10.3 GSV, Proximal Thigh Competent 3.1 8.2 GSV, Mid Thigh Reflux 8.9 5.9 GSV, Distal Thigh Reflux 2.9 5.9 GSV, Knee Competent 2.5 6.5 GSV Prox Calf Competent 3.0 4.6 GSV, Mid Calf Reflux 3.0 2.7 GSV, Distal Calf Reflux 2.5 4.3 SSV Competent 4.6 3.9 Prox ASV Competent 3.4 8.0 Mid ASV Competent 2.0 4.3 Interpretation: Right: Findings consistent with superficial venous valvular incompetence at the saphenofemoral junction and great saphenous vein from the mid thigh to distal thigh, and from mid calf to distal calf (reflux time >4.3 seconds). Incompetent advanced practice professional vein (5 mm diameter) originates from the GSV atmid thigh. Varicose veins originate from the GSV at the distal thigh and at mid calf. Superficial thrombus in the varicose veins at proximal to mid calf, without great saphenous vein phlebitis. No evidence of deep venous valvular incompetence. No evidence of deep (femoropopliteal) thrombus. Comparison: No previous study in our vascular lab database for comparison. Assessment and Plan: Per patient's last office vist with Dr. Velasco on 04/09/23: Vishal Ramirez presents with symptomatic right lower extremity varicose veins, with superficial phlebitis in varicose veins of the right leg that began in January. This is his first episode of phlebitis, may have been precipitated by running but there is no other obvious etiology. He has had resolution of pain at the site, is using compression stockings. He saw Marcia Jackson PA-C at [facility] recently, who recommended 10 mg of Xarelto daily for 2 weeks after lower extremity venous surgery, and consideration of venous procedures to eliminate risk of recurrent phlebitis. She did not recommend hypercoagulable testing or anticoagulation currently. Right lower extremity venous duplex today demonstrates no deep venous incompetence or DVT. The great saphenous vein is incompetent from a deep venous advanced practice professional at mid-thigh to the varicose veins of proximal to mid calf. The great saphenous is enlarged to as much as 8.9 mm mid-thigh, it does not have phlebitis, but there is residual phlebitis in medial calf varicose veins. There is no short or anterior saphenous vein incompetence or phlebitis. I discussed his superficial phlebitis at length. Given that he had phlebitis only in varicose veins, not in the great saphenous vein and certainly not approaching the deep veins, his 6-week course ofXarelto in January is more than adequate. I did discuss with him the marginal data that are available for treatment of superficial phlebitis that does not approach the deep veins----there may be a very small benefits of 6 weeks of therapy but certainly not more than that. There is also no role for hypercoagulable testing, as noted by his hematology consultation. There is a risk of phlebitis recurrence, and of ascending phlebitis in the great saphenous vein, which could reach the deep veins at either mid thigh or saphenofemoral junction. However, it is not a certainty that he will have recurrent phlebitis. I recommended compression stocking therapy to minimize the risk of phlebitis recurrence. I would not restrict him from running, I am not certain it is a good idea to run ultramarathons however. I also discussed the natural history of varicose vein disease, which rarely progresses to stasis dermatitis and ulceration. He is at some risk of recurrent phlebitis. I recommended compression stockings regardless of any other treatment. I discussed treatment of the right great saphenous vein, to eliminate superficial venous incompetence, decompress the varicosities, and reduce the risk of varicose vein recurrence---this will also eliminate the possibility of ascending phlebitis from the varicosities. I discussed varicose vein excision, which will eliminate his current symptoms and the possibility of recurrent phlebitis in these varicosities; sclerotherapy is not indicated for varicosities of this size. I discussed radiofrequency ablation or open stripping of the right great saphenous vein. Regarding ablation, I reviewed the risks of failure to ablate (2%), DVT (1-2 %), skin burn, nerve injury, and bleeding. Regarding open stripping as well as varicose vein excision, I reviewed the risks of bleeding, infection, wound problems, hematoma, pain, scarring, nerve injury, and DVT. Vein recurrence or progression of venous disease are possible. I discussed the typical recovery from these procedures, estimated 2 weeks out of work or with limited activities, except for radiofrequency ablation alone which tends to have a shorter recovery. He elects to proceed with right great saphenous vein radiofrequency ablation, and right lower extremity stab phlebectomy. This will be performed on an outpatient basis under general anesthesia, and is low risk. He is otherwise healthy (runs ultramarathons), and a reasonable candidate [facility]. It will be several months before we can schedule his operation, but that time is valuable to allow additional resolution of phlebitis, allowing a more complete and less invasive vein excision. We will plan 2 weeks of Xarelto, 10 mg daily, postoperatively. Additionally, there is always an early postoperative duplex to evaluate the ablation, which will ensure that he does not have DVT. Patient has been consented and is agreeable to proceed as planned. EARNESTINE Daugherty 07/30/2023 Pager: [phone] documented in this encounter Miscellaneous Notes * Op Note - Juni Velasco III, MD - 07/30/2023 12:32 PM EST [facility] Operative Note Patient Name: Vishal Ramirez : [id number] MR#: [id number] Case Date: 07/30/2023 Surgeon: Surgeon(s) and Role: * Juni Velasco III, MD - Primary * Perez Rodriguez PA - Physician Communications Assistant Preoperative diagnosis: superficial phlebitis, venous insufficiency Postoperative diagnosis: superficial phlebitis, venous insufficiency Procedure(s) (LRB): ENDOVENOUS ABLATION THERAPY OF INCOMPETENT VEIN, EXTREMITY, FIRST VEIN (WRVU 5.3) (Right) STAB PHLEBECTOMY LEONARDO VEINS 1 EXTREMITY 10-20 INCISIONS (WRVU 4.8) (Right) 1. Right great saphenous vein radiofrequency ablation 2. Right lower extremity stab phlebectomy, 20 incisions Anesthesia: General Estimated Blood Loss: 5 mL Specimens removed during surgery: Varicose veins, not sent to pathology Disposition: To postoperative recovery, extubated, for planned home discharge Condition: Stable (Please see the Surgical Encounter Summary for any Implant and Specimen details pertinent to this patient.) Findings: The right great saphenous vein was enlarged from the saphenofemoral junction into the lower leg, but also had quite a large dilation at mid thigh, where it also had a several centimeter long communication with the deep veins, as anticipated. It was then fairly large throughout the distal thigh, somewhat smaller at the knee and proximal calf. It gave off substantial varicose veins at the distal thigh and in the calf. It was treated with radiofrequency ablation from the mid-proximal calf to within several centimeter of the saphenofemoral junction. Following ablation, the great saphenous vein was hyperechoic and thickened. There was no immediate common femoral vein/saphenofemoral junction DVT/thrombus. Stab phlebectomy was performed of large varicosities from the medial mid thigh, throughout the lower leg to shortly above the medial malleolus. I noted chronic phlebitis in many of the varicosities of the proximal to mid medial calf, but was able to remove them completely despite some above averageadhesion/scarring. I prescribed Xarelto 10 mg daily for 2 weeks after this operation, as recommended by hematology given his phlebitis. I asked him to start this tomorrow morning. HPI/Surgical Indications: Vishal Ramirez presents with symptomatic right lower extremity varicose veins, with superficial phlebitis in varicose veins of the right leg that began in January. This is his first episode of phlebitis, may have been precipitated by running but there is no other obvious etiology. He has had resolution of pain at the site, is using compression stockings. He saw Marcia Jackson PA-C at [facility] recently, who recommended 10 mg of Xarelto daily for 2 weeks after lower extremity venous surgery, and consideration of venous procedures to eliminate risk of recurrent phlebitis. She did not recommend hypercoagulable testing or anticoagulation currently. Right lower extremity venous duplex today demonstrates no deep venous incompetence or DVT. The great saphenous vein is incompetent from a deep venous advanced practice professional at mid-thigh to the varicose veins of proximal to mid calf. The great saphenous is enlarged to as much as 8.9 mm mid-thigh, it does not have phlebitis, but there is residual phlebitis in medial calf varicose veins. There is no short or anterior saphenous vein incompetence or phlebitis. He elects to proceed with right great saphenous vein radiofrequency ablation, and right lower extremity stab phlebectomy. Procedure Description: Vishal Ramirez was met in the preoperative area at the [facility] at [facility], and all relevant consents were signed. In a standing position, the varicose veins of the right leg were marked with permanent marker, and he concurred with the veins as marked. He was then brought to the operating room and placed supine. After induction of general anesthesia, the right lower extremity from thetoes to the abdominal wall was circumferentially prepped with chlorhexidine and sterilely draped. The foot was excluded in an impermeable bag. After a standard timeout during which patient, site, andprocedure were identified, the right great saphenous vein was mapped from the saphenofemoral junction to the lower leg, with findings as above. The great saphenous vein at the mid-- proximal lower leg was accessed with ultrasound guidance with a micropuncture needle without difficulty. The wire wasconfirmed to be intravenous, and a 7 Scottish sheath was placed. The radiofrequency catheter was advanced up to the level of the saphenofemoral junction (required 0.025 inch Glidewire assistance to cross the mid thigh great saphenous dilation), then pulled down to approximately 4 cm from the SFJ. This was confirmed in a vertical and horizontal view. It was marked at this location. Then the standardtumescent mixture consisting of saline, epinephrine and lidocaine was instilled circumferentially creating a good halo around the great saphenous vein throughout the planned ablation segment. Catheter position was reconfirmed, and ablation performed with 2 cycles at the first station, then 1 at each station back to the level of the sheath. Ultrasound was performed with findings as above. The sheath was removed and pressure held for hemostasis. A single 4-0 nylon suture was used to close the skin incision site. Next, transverse micro stab incisions were created overlying all of the varicosities in the thigh and lower leg that I had marked preoperatively. Veins were removed by hook phlebectomy and pressure held for hemostasis--- I did find many of the proximal to mid medial calf varicosities to have obvious chronic phlebitis, and extirpation was more difficult than usual, but ultimately complete. 4-0 nylon sutures were used to close all of these incisions. 0.5% bupivacaine was instilledunder all the incisions for local anesthesia. Mastisol and Steri-Strips were applied to all of the incision sites. Telfa was applied, and the leg was wrapped from the toes to the proximal thigh with Kerlix roll gauze and Coban wrap. The patient was then awakened, extubated, brought to recovery in stable condition. All sponge needle and instrument counts were reported as correct at the end of the case. I was present scrubbed and participated in the entirety of this operation, along with supervision of Fransisco Rodriguez PA-C. Attestation: Case Date: 07/30/2023 I was present and I participated during the critical and brown portions of this procedure; and I was immediately available during the remainder of the procedure. I interpret the critical and brown portions of this procedure to have been: The entire procedure. JUNI VELASCO III, MD 07/30/2023 documented in this encounter Plan of Treatment Not on file documented as of this encounter Procedures Procedure Name Priority Date/Time Associated Diagnosis Comments STAB PHLEBECTOMY LEONARDO VEINS 1 EXTREMITY 10-20 INCISIONS Routine 07/30/2023 1:42 PM EST Varicose veins of right lower extremity with pain Thrombophlebitis Venous insufficiency of right lower extremity Phleb Veins - Extrem - To 20 (15493) 07/30/2023 12:06 PM EST Varicose veins of right lower extremity with pain Thrombophlebitis Venous insufficiency of right lower extremity Endovenous Ablation Incompetent Vein Radiofrequency 1St Vein (01420) 07/30/2023 12:06 PM EST Varicose veins of right lower extremity with pain Thrombophlebitis Venous insufficiency of right lower extremity ENDOVENOUS ABLATION THERAPY OF INCOMPETENT VEIN, EXTREMITY, FIRST VEIN Routine 07/30/2023 11:12 AM EST Varicose veins of right lower extremity with pain Thrombophlebitis Venous insufficiency of right lower extremity documented in this encounter Visit Diagnoses Diagnosis Varicose veins of right lower extremity with pain Varicose veins of lower extremities with other complications Thrombophlebitis Phlebitis and thrombophlebitis of unspecified site Venous insufficiency of right lower extremity Varicose veins of right lower extremity with pain Varicose veins of lower extremities with other complications Thrombophlebitis Phlebitis and thrombophlebitis of unspecified site Venous insufficiency of right lower extremity documented in this encounter Administered Medications Inactive Administered Medications - up to 3 most recent administrations Medication Order MAR Action Action Date Dose Rate Site acetaminophen (Tylenol) tablet 975 mg 975 mg, Oral, ONCE, 1 dose, On Fri07/30/23 at 0730, Maximum dose of acetaminophen is 4,000 mg from all sources in 24 hours. When ordered for pain, acetaminophen should be given even when other ordered pain medications are indicated. , Routine Given 07/30/2023 11:27 AM EST 975 mg BUpivacaine (pf) (Marcaine) (5 mg/mL) 0.5% injection PRN, Starting on Fri07/30/23 at 1347, Until Fri07/30/23 at 1646, Intra-Operative (Intra-Procedure), Routine Given 07/30/2023 1:47 PM EST 12 mLs 19- Surgical Site lidocaine-EPINEPHrine (1% - 1:100,000) injection PRN, Starting on Fri07/30/23 at 1243, Until Fri07/30/23 at 1646, Intra-Operative (Intra-Procedure), Routine Given 07/30/2023 12:43 PM EST 25 mLs 19- Surgical Site documented in this encounter Active and Recently Administered Medications Times are shown in EST. Scheduled Medication Order 07/28/2023 07/29/2023 07/30/2023 acetaminophen (Tylenol) tablet 975 mg (COMPLETED) 975 mg, Oral, ONCE, 1 dose, On Fri07/30/23 at 0730, Maximum dose of acetaminophen is 4,000 mg from all sources in 24 hours. When ordered for pain, acetaminophen should be given even when other ordered pain medications are indicated. , Routine 1127 (Given - Provid er: Rhea Puente RN) ceFAZolin (Ancef) 2 g in dextrose 5% 100 mL infusion (COMPLETED) 2 g, Intravenous, COMPOSING ROOM SUPERVISOR TO O.R., 1 dose, On Fri07/30/23 at 1130, Administer over 30 Minutes, Redose after 4 hours., Day of Surgery (Day of Procedure), Indication for (Active or Suspected): Prophylaxis 1216 (Given - Provid er: Connie Meyer CRNA) Continuous Medication Order 07/28/2023 07/29/2023 07/30/2023 lactated ringers infusion (CANCELED) 1,000 mL, at 100 mL/hr, Intravenous, CONTINUOUS, Starting on Fri07/30/23 at 1130, Until Fri07/30/23 at 1444, Day of Surgery (Day of Procedure) 1204 (New Bag - Prov ider: Connie Meyer CRNA)1347 (Anesthesia Volume Adjustment - Provider: Connie Meyer CRNA) PRN Medication Order 07/28/2023 07/29/2023 07/30/2023 BUpivacaine (pf) (Marcaine) (5 mg/mL) 0.5% injection (CANCELED) PRN, Starting on Fri07/30/23 at 1347, Until Fri07/30/23 at 1646, Intra-Operative (Intra-Procedure), Routine 1347 (Given - Provid er: Juni Velasco III, MD) lidocaine-EPINEPHrine (1% - 1:100,000) injection (CANCELED) PRN, Starting on Fri07/30/23 at 1243, Until Fri07/30/23 at 1646, Intra-Operative (Intra-Procedure), Routine 1243 (Given - Provid er: Juni Velasco III, MD - Comment: 1% lidocaine with epi 1:100,000 25 mL mixed with 500 cc NS500 used on pt) No Frequency Medication Order 07/28/2023 07/29/2023 07/30/2023 ceFAZolin (Ancef) 1 gram injection 1 dose, Starting on Fri07/30/23 at 1124, Until Fri07/30/23 at 1646, Rhea Puente: cabinet override 1130 (Due) documented in this encounter Care Teams Auction Clerk Relationship Specialty Start Date End Date Tamiko Delgado APRN [address] [place] [address] PCP - General Family Medicine 02/11/23 documented as of this encounter
--- OUTSIDE RECORDS SUMMARY | 2024-08-26 13:35 | XMS_ITS | Referral Summary ---
Author Organization [facility] Address [address] [place] [address] Care Team Providers Care Grain And Yeast Plants Supervisor Name Role Phone Gogo Monzon MD Primary Care Provider [phone] Allergies No known active allergies Medications No known medications Active Problems Problem Noted Date Diagnosed Date Hypercoagulable state ([facility]) 03/07/2023 Overview (04/11/2023): 1. 02/04/23: provoked superficial venous thrombosis of a branch off the right GSV in the setting of intense training for ultramarathon/dehydration/variscose veins - Xarelto 10 mg once daily x 45 days - 03/20/23 Venous US ([facility]): persistent thrombus in branch off right GSV. Vishal caicedo at this point - following with [facility] Vascular- if vascular procedure pursued, would advise Xarelto 10 mg daily x 2 weeks after for ppx Thrombosis risk factors: varicose veins (which lead to bveouns pooling/stasis) and male sex (higher risk of VTE recurrence) Family Hx of VTE: none Social History Tobacco Use Types Packs/Day Years Used Date Smoking Tobacco: Never Smokeless Tobacco: Former Chew Quit: 2022 Tobacco Cessation:Counseling Given: Not Answered Comments:Off all nicotine now Alcohol Use Standard Drinks/Week Comments Yes 4 (1 standard drink = 0.6 oz pur e alcohol) Sex and Gender Information Value Date Recorded Sex Assigned at Not on file Legal Sex Male 10:44 EDT Gender Identity Male 03/03/2023 8:17 EDT Sexual Orientation Not on file Plan of Treatment Not on file [place] [address] [address] Care Teams Grain And Yeast Plants Supervisor Relationship Specialty Start Date End Date Gogo Monzon MD [address] [place] [address] PCP - General Family Medicine - Primary Care 03/03/23
--- OUTSIDE RECORDS SUMMARY | 2024-08-26 13:35 | XMS_ITS | Encounter Summary ---
Author Organization [facility] [place] [address] Care Team Providers Care Clearing Supervisor Name Role Phone None Primary Care Provider Unavailabl e Reason for Visit * Reason Comments Leg Pain R calf Encounter Details Date Type Department Care Team (Late st Contact Info) Description 02/04/2023 2:30 PM EDT - 02/04/2023 3:03 PM EDT Emergency Emergency Department [facility] [place] [id number] Embolism and thrombosis of superficial vein of right lower extremity Discharge Disposition: Home Social History Tobacco Use Types Packs/Day Years Used Date Smoking Tobacco: Never Assessed Sex and Gender Information Value Date Recorded Sex Assigned at Not on file Gender Identity Not on file Sexual Orientation Not on file documented as of this encounter Last Filed Vital Signs Vital Sign Reading Time Taken Comments Blood Pressure 142/100 02/04/2023 2:27 PM EDT Pulse 59 02/04/2023 2:27 PM EDT Temperature 36.2 ??C (97.2 ??F) 02/04/2023 2:27 PM ED T Respiratory Rate 16 02/04/2023 2:27 PM EDT Oxygen Saturation 99% 02/04/2023 2:27 PM EDT Inhaled Oxygen Concentration - - Weight 77.1 kg (170 lb) 02/04/2023 2:27 PM EDT Height 182.9 cm (6') 02/04/2023 2:27 PM EDT Body Mass Index 23.06 02/04/2023 2:27 PM EDT documented in this encounter Discharge Instructions * Discharge Instructions* Tomy Contreras PA - 02/04/2023 2:55 PM EDT You were seen in the emergency department for a superficial blood clot in your vein. Please take xarelto 10mg for 45 days and follow up with your primary care and possibly hematology/vascular surgeryfor further evaluation. Return to the emergency department if you have increased pain, swelling, shortness of breath, difficulty breathing, chest pain, stroke like symptoms as discussed or any other questions or concerns. * Attachments The following attachments cannot be sent through Care Everywhere. * Thrombophlebitis: Superficial (Luxembourger) * Direct Oral Anticoagulants: Non-Vitamin K Antagonist (Luxembourger) documented in this encounter ED Notes * Tomy Contreras PA - 02/04/2023 3:03 PM EDT ED Provider Note HPI: Vishal Ramirez is a 42 y.o. male who presents to the Emergency Department with a superficial blood clot in his RLE that started 5 days ago. He first noticed the pain when he awoke this morning. He was diagnosed with a superficial blood clot in his RLE, but was told multiple things about treatment so he came to [facility] ED for further evaluation. Denies SOB, CP, abd pain. No history of DVT/PE. No recenttrauma, prolonged travel, surgeries, head strike, GI bleeding. ROS as per HPI Vitals: ED Triage Vitals [02/04/23 1427] BP: (!) 142/100 Heart Rate: 59 Resp: 16 Temp: 36.2 ??C (97.2 ??F) Temp src: Temporal SpO2: 99 % O2 Device: RA O2 Flow Rate (L/min): n/a Physical Exam Constitutional: Appears well-developed and well-nourished. No distress. Head: Normocephalic and atraumatic. Neck: Normal range of motion. Cardiovascular: Normal rate Pulmonary/Chest: Effort normal Musculoskeletal: Superficial palpable torturous vein in the right lower leg from the calf to the mid thigh. PT/DP pulses are intact. Sensation intact to light touch. Neurological: Alert and oriented Skin: Skin is warm and dry. ED Course: No orders to display Procedures Assessment and Plan: 42 y.o. male presents to the emergency department with a superficial blood clot in his right lower extremity that was diagnosed at an outside hospital. There was confusion about treatment so he came to the emergency department for further evaluation. His exam is overall reassuring and is consistentwith a superficial blood clot. I spoke with hematology who actually was already contacted about this patient. They recommended Xarelto 10 mg for 45 days. The patient will also follow-up with her primary care provider for further evaluation. We discussed risks and benefits of being on Xarelto, spontaneous head bleeds, more likely to bleed after trauma, other spontaneous bleeding, GI bleeds, limiting high risk activity, not taking NSAIDs/aspirin while on Xarelto. The visit findings, diagnosis, and care plan were discussed with the patient. The diagnosis and care plans discussions were outlined in the discharge instructions. The patient expressed understanding of the details of the visit, the return precautions and that he should returnto the ER at any time for worsening symptoms, new symptoms, or other concerns. he agrees with the follow- up plan. Tomy Contreras PA 02/04/23 1544 * Tomy Contreras PA - 02/04/2023 2:24 PM EDT Brief Provider Triage Note: 42 y.o. male presents to the emergency department stating that he has a superficial blood clot in his thigh. He was told multiple different plans for treatment so he came to the ED for further evaluation. The patient is awaiting a bed in the Emergency Department. Tomy Contreras PA 02/04/23 1427 documented in this encounter Miscellaneous Notes * ED Triage - Reynold Guerrier RN - 02/04/2023 2:25 PM EDT Reporting ongoing R calf pain. Was told he possibly has a DVT vs superficial blood clot at outside hospital. Ambulatory on arrival. AAOx4. HPI (Adult) Stated Reason for Visit: DVT History Obtained From: patient Medications/Treatments Prior to Arrival: none documented in this encounter Plan of Treatment Not on file documented as of this encounter Visit Diagnoses Diagnosis Embolism and thrombosis of superficial vein of right lower extremity Venous embolism and thrombosis of superficial vessels of lower extremity documented in this encounter Care Teams Clearing Supervisor Relationship Specialty Start Date End Date None None PCP - General 02/04/23 02/10/23 documented as of this encounter
--- OUTSIDE RECORDS SUMMARY | 2024-08-26 13:35 | XMS_ITS | Encounter Summary ---
Author Organization [facility] [place] [address] Care Team Providers Care Obstetrician Name Role Phone Tamiko Delgado SAQIB Primary Care Provider [phone] Encounter Details Date Type Department Care Team (Late st Contact Info) Description 08/12/2023 9:15 AM EST Office Visit Vascular Surgery at [facility] [place] [address] Juni Velasco III, MD [address] [place] [address] [place] [address] Phlebitis of superficial vein of right lower extremity; Varicose veins of right lower extremity with complications; Venous insufficiency of right lower extremity Social History Tobacco Use Types Packs/Day Years Used Date Smoking Tobacco: Never Smokeless Tobacco: Former Chew Quit: 2021 Alcohol Use Standard Drinks/Week Comments Yes 1 (1 standard drink = 0.6 oz pur e alcohol) [facility] Inpatient Questions Answer Date Recorded Does Anyone [...] Sign Reading Time Taken Comments Blood Pressure 149/65 08/12/2023 9:15 AM EST Pulse 58 08/12/2023 9:15 AM EST Temperature - - Respiratory Rate - - Oxygen Saturation - - Inhaled Oxygen Concentration - - Weight 79.4 kg (175 lb) 08/12/2023 9:15 AM EST Height 180.3 cm (5' 11) 08/12/2023 9:15 AM EST Body Mass Index 24.41 08/12/2023 9:15 AM EST documented in this encounter Progress Notes * Juni Velasco III, MD - 08/12/2023 9:15 AM EST OUTPATIENT VASCULAR SURGERY CONSULTATION Reason for Visit: Right great saphenous vein radiofrequency ablation and right lower extremity stabphlebectomy 07/30/2022, for symptomatic right lower extremity varicose veins with phlebitis, venous insufficiency. History of Present Illness: Vishal Ramirez is a 43 y.o. male seen in follow-up after recent right lower extremity venous surgery as above. Post procedure duplex demonstrated successful ablation of the great saphenous vein withoutDVT. He offers no complaints related to his right leg incisions or postoperative recovery. He has resumed most of his activities, does not have any severe ongoing pain. He denies leg swelling. He is completing his 2-week postoperative course of Xarelto. Prior history: He has noted substantial varicose veins of the right lower extremity for 5 or 10 years. Beginning on January 29, 2023, he had significant pain localized to the varicosities of the right medial calf. On February 04, phlebitis in varicose veins was documented on duplex at [facility]. He denies any antecedent history of significant travel, immobilization, surgery, or injury. He had 6 weeks of Xarelto---pain in the varicosities resolved within 10 days of beginning Xarelto therapy. This is his first episode of phlebitis. 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 He denies right lower extremity swelling or ulceration. He does note that his mother had varicose veins and mayhave had venous blood clots when she had cancer. He denies lower extremity surgery. He had a fracture of the ankle at a young age. He has been using compressive sleeves and knee-high compression stockings since phlebitis onset, he is not certain whether they provide clinical benefit. He saw Marcia Jackson PA-C at [facility] recently, who recommended 10 mg of Xarelto [...] He denies abdominal pain or problems. Patient Active Problem List Diagnosis Code Varicose veins of lower extremities with complications I83.899 Venous insufficiency of right lower extremity I87.2 Phlebitis of superficial vein of right lower extremity I80.01 Medications 04/13/23 1029 Not on File No Known Allergies Review of Systems: Constitutional (weight change, fever) - Denies Neuro (dizziness, seizures, numbness, tingling) - Denies Eyes (vision) - Denies Ears, nose, throat (hearing) - Denies Cardiovascular (CP) - Denies Respiratory (SOB) - Denies GI (abd pain, nausea, emesis, blood in stool) - Denies (hematuria, dysuria, frequency) - Denies Muscoloskeletal (extremity pain, weakness) - see HPI Skin (ulcers, rashes) - see HPI Functional Status/Social Hx: No history of tobacco smoking although used chewing tobacco in the past. 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 Family Hx: His mother may have had venous blood clots when she had cancer, Mother with varicose veins. Physical Exam: Vitals Flowsheet Row Office Visit from 08/12/2023 in Vascular Surgery at [facility] Weight 79.4 kg (175 lb) Height 180.3 cm (5' 11) BSA (Calculated - sq m) 1.99 sq meters BMI (Calculated) 24.4 Heart Rate 58 BP 149/65 Patient Position Sitting General - NAD, seen alone Neuro - Alert and Oriented, Motor Sensory grossly intact Cardiac - RRR Extremities - Right lower extremity: The stab phlebectomy sites of the medial mid-thigh, throughout the medial lower leg are healing well, no erythema or hematoma. I removed sutures today. There is no stasis dermatitis, ulcer, or edema.DP and PT pulses are readily palpable. Left lower extremity: No varicose veins. There is no stasis dermatitis, ulcer, or edema. DP and PT pulses are readily palpable. Vascular Exam: R L Carotid 2/2 bruit (-) 2/2 bruit (-) Radial 2/2 2/2 Femoral 2/2 2/2 Popliteal DP 2/2 2/2 PT 2/2 2/2 Labs: January 2023: BUN 9, creatinine 0.8, Hgb 13, platelets 228. Studies: Right lower extremity venous duplex at [facility] 02/04/23 (report): No DVT, there is phlebitis of varicose veins of the medial distal thigh through distal calf. Right lower extremity venous duplex at [facility] 04/09/23: Findings: Segment Right Reflux? Diameter (mm) [...] distal calf (reflux time >4.3 seconds). Incompetent refrigeration manager vein (5 mm diameter) originates from the [...] in our vascular lab database for comparison. Right lower extremity venous duplex at [facility] 08/01/23, radiology report and images are available for my review: The great saphenous vein is occluded/ablated 3 cm from the saphenofemoral junction, throughout the thigh and into the proximal calf. There is no DVT. Assessment and Plan: Vishal Ramirez is seen in follow-up after right great saphenous vein radiofrequency ablation and right lower extremity stab phlebectomy 07/30/2022, performed for symptomatic right lower extremity varicose veins, with superficial phlebitis in varicose veins of the right leg that began in January. He is recovering uneventfully after his venous operation, I removed the sutures today and all of the incisions are healing well. I discussed typical incisional care. Post procedure venous duplex demonstrated successful closure/ablation of the great saphenous vein, without DVT. He is completing a 2- week postoperative course of Xarelto, given his prior phlebitis. He has no hematomas. I have no restrictions on his activity. As noted previously, this is his first episode of phlebitis, may have been precipitated by running but there is no other obvious etiology. He has had resolution of pain at the site, is using compression stockings. He saw Marcia Jackson PA-C at [facility] prior to his venous surgery, who recommended 10 mg of Xarelto daily for 2 weeks after lower extremity venous surgery. He does not have an indication for long-term anticoagulation. I currently plan to see him as needed, but I will be happy to reevaluate at any time. Thank you forthe opportunity to participate in his care. Please contact me with any questions. documented in this encounter Plan of Treatment Not on file documented as of this encounter Visit Diagnoses Diagnosis Phlebitis of superficial vein of right lower extremity Varicose veins of right lower extremity with complications Venous insufficiency of right lower extremity documented in this encounter Care Teams Obstetrician Relationship Specialty Start Date End Date Tamiko Delgado APRN [address] [place] [address] PCP - General Family Medicine 02/11/23 documented as of this encounter
--- OUTSIDE RECORDS SUMMARY | 2024-08-26 13:35 | XMS_ITS | Encounter Summary ---
Author Organization [facility] Address [facility] [place] [address] Care Team Providers Care Manager Ems Name Role Phone Tamiko Delgado SAQIB Primary Care Provider [phone] Reason for Visit * Diagnostic Test (Routine) - Closed Specialty Diagnoses / Procedures Referred By Fan lopez Referred To Contact Diagnoses Varicose veins of right lower extremity with pain Thrombophlebitis Procedures LE Unilateral Valvular Incomp Study Mikayla Cesar APRN [facility] [place] [address] [facility] [address] [place] [address] Referral ID Status Reason Start Date Expiration Date V isits Requested Visits Authorized [id number] Closed Specialty Service Requested 02/13/2023 02/13/2024 1 1 Encounter Details Date Type Department Care Team (Late st Contact Info) Description 04/09/2023 11:00 AM EDT Tech Visit [place] [address] Sherry Brown Varicose veins of right lower extremity with [...] Procedure Name Priority Date/Time Associated Diagnosis Comments UNLATERAL VALVULAR INCOMP Routine 04/09/2023 10:49 AM EDT Varicose veins of right lower extremity with pain Thrombophlebitis documented in this encounter Results * LE Unilateral Valvular Incomp Study (04/09/2023 10:49 AM EDT) VB Text Report Department: Vascular Surgery Lab Patient: [id number] (VISHAL MÁRQUEZ) CPT: 96305 Referring Physician: MIKAYLA CESAR ?? Phone: Indications: [...] distal calf (reflux time >4.3 seconds). Incompetent chemical dependency professional vein (5 mm diameter) originates from [...] site documented in this encounter Care Teams Manager Ems Relationship Specialty Start Date End Date Tamiko Delgado APRN [address] [place] [address] PCP - General Family Medicine 02/11/23 documented as of this encounter
--- OUTSIDE RECORDS SUMMARY | 2024-08-26 13:35 | XMS_ITS | Encounter Summary ---
[place] [address] Care Team Providers Care Application Tester Name Role Phone Tamiko Delgado APRN Primary Care Provider [phone] Encounter Details Date Type Department Care Team (Latest Contact Info) Description 04/09/2023 Travel Social History Tobacco Use Types Packs/Day Years [...] on filedocumented in this encounter Care Teams Application Tester Relationship Specialty Start Date End Date Tamiko Delgado APRN [address] [place] [address] PCP - General Family Medicine 02/11/23 documented as of this encounter
--- OUTSIDE RECORDS SUMMARY | 2024-08-26 13:35 | XMS_ITS | Encounter Summary ---
Author Organization [facility] [place] [address] Care Team Providers Care Conveyor Line Bakery Worker Name Role Phone Tamiko Delgado APRN Primary Care Provider [phone] Encounter Details Date Type Department Care Team (Late st Contact Info) Description 04/10/2023 Orders [place] [address] Eugenia Fernandez RN Varicose veins of right lower extremity with pain; Thrombophlebitis; Venous insufficiency of right lower extremity Social [...] as of this encounter Visit Diagnoses Diagnosis Varicose veins of right lower extremity with pain Varicose veins of lower extremities with other complications Thrombophlebitis Phlebitis and thrombophlebitis of unspecified site Venous insufficiency of right lower extremity documented in this encounter Care Teams Conveyor Line Bakery Worker Relationship Specialty Start Date End Date Tamiko Delgado APRN [address] [place] [address] PCP - General Family Medicine 02/11/23 documented as of this encounter
--- OUTSIDE RECORDS SUMMARY | 2024-08-26 13:35 | XMS_ITS | Encounter Summary ---
Author Organization Formerly [facility], [facility] [place] [address] Care Team Providers Care Cubing Machine Tender Name Role Phone Tamiko Delgado SAQIB Primary Care Provider [phone] Reason for Referral * Consultation (Routine) - Closed Specialty Diagnoses / Procedures Referred By Fan lopez Referred To Contact Vascular Surgery Diagnoses Examination ROUTINE, HEBER/, RLE THROMBOSED SUPERFICIAL VEIN Jenise Thrasher PA [facility] [place] [address] [facility] [address] [place] [address] Referral ID Status Reason Start Date Expiration Date V isits Requested Visits Authorized [id number] Closed Consult, Test & Treat PCP Updated and/or Approved 02/11/2023 02/11/2024 6 6 Encounter Details Date Type Department Care Team (Late st Contact Info) Description 02/11/2023 Transcribe Orders eDH Incoming Referrals [phone] Jenise Thrasher PA [address] [place] [id number] Examination Social History Tobacco Use Types Packs/Day Years Used Date Smoking Tobacco: Never Assessed Sex and Gender Information Value Date Recorded Sex Assigned at Not on file Gender Identity Not on file Sexual Orientation Not on file documented as of this encounter Plan of Treatment Scheduled Referrals Name Type Priority Associated Diagnoses Orde r Schedule Referral to Vascular Surgery Outpatient Referral Routine Examination Ordered: 02/11/2023 documented as of this encounter Visit Diagnoses Diagnosis Examination Unspecified examination documented in this encounter Care Teams Cubing Machine Tender Relationship Specialty Start Date End Date Tamiko Delgado APRN [address] [place] [address] PCP - General Family Medicine 02/11/23 documented as of this encounter
--- OUTSIDE RECORDS SUMMARY | 2024-08-26 13:35 | XMS_ITS | Encounter Summary ---
[place] [address] Care Team Providers Care Development Scientist Name Role Phone Tamiko Delgado SAQIB Primary Care Provider [phone] Reason for Visit * Auth/Cert (Routine) Specialty Diagnoses / Procedures Referred By Fan lopez Referred To Contact Diagnoses superficial phlebitis, venous insufficiency Procedures PRO ENDOVENOUS RF, 1ST VEIN PRO PHLEB VEINS - EXTREM 20+ ENDOVENOUS ABLATION THERAPY OF INCOMPETENT VEIN, EXTREMITY, FIRST VEIN (WRVU 5.3) STAB PHLEBECTOMY LEONARDO VEINS 1 EXTREMITY MORE 20 INCISIONS (WRVU 6) Juni Velasco III, MD [address] [place] [address] [place] [address] [facility] Referral ID Status Reason Start Date Expiration Date Visits Re quested Visits Authorized [id number] 1 1 Encounter Details Date Type Department Care Team (Latest Contact Info) Description 07/30/2023 11:09 AM EST - 07/30/2023 2:42 PM [facility] Hospital Encounter [place] [address] Juni Velasco III, MD [address] [place] [address] [place] [address] Varicose veins of right lower extremity with pain; Thrombophlebitis; Venous insufficiency of right lower extremity Discharge Disposition: Home Social History Tobacco Use Types Packs/Day Years Used Date Smoking Tobacco: Never Smokeless Tobacco: Former Chew Quit: 2021 Tobacco Cessation:Counseling Given: Not Answered Alcohol Use Standard Drinks/Week Comments Yes 1 (1 standard drink = 0.6 oz pur e alcohol) DH IPV Inpatient Questions Answer Date Recorded Does Anyone [...] closest emergency room or call the hospital planing machine operator at [phone] and ask for physician telecommunications network engineer covering for your physician. Questions or problems after 5pm or on a weekend: Call the [facility] planing machine operator at and ask for the physician telecommunications network engineer covering for your doctor. At 1130 am [...] mailed to you. Please call our office ([phone]) if you do not receive the ultrasound appointment within 2 days or the clinic appointment within 10 days. For any questions or concerns please call [phone] documented in this encounter Medications at Time of Discharge Medication Sig Dispensed Refills Start Date End Date rivaroxaban (Xarelto) 10 mg tablet Take 1 tablet by mouth daily. 14 tablet 07/31/2023 HYDROcodone-acetaminophe n ([place]) 5-325 mg tablet Take 1 tablet by [...] last office visit with Dr. Velasco on 9/13/23: Reason for Visit: Symptomatic right lower extremity [...] varicose veins was documented on duplex at [facility]. He denies any antecedent history [...] clinical benefit. He sawMarcia Jackson PA-C at [facility] recently, who recommended 10 [...] Studies/Imaging: Right lower extremity venous duplex at [facility] 02/04/23 (report): No DVT, there is phlebitis of varicose veins of the medial distal thigh through distal calf. Right lower extremity venous duplex at [facility] 04/09/23: Findings: Segment Right Reflux? Diameter (mm) [...] distal calf (reflux time >4.3 seconds). Incompetent signal maintenance technician vein (5 mm diameter) originates from the [...] stockings. He saw Marcia Jackson PA-C at [facility] recently, who recommended 10 mg of Xarelto daily for 2 weeks after lower extremity venous surgery, and consideration of venous procedures to eliminate risk of recurrent phlebitis. She did not recommend hypercoagulable testing or anticoagulation currently. Right lower extremity venous duplex today demonstrates no deep venous incompetence or DVT. The great saphenous vein is incompetent from a deep venous signal maintenance technician at mid-thigh to the varicose veins of [...] and a reasonable candidate for any of [facility] sites where we perform venous procedures. It [...] proceed as planned. EARNESTINE Daugherty 07/30/2023 Pager: [phone] documented in this encounter Miscellaneous Notes * Op Note - Juni Velasco III, MD - 07/30/2023 12:32 PM EST [facility] Operative Note Patient Name: Vishal Ramirez : [id number] MR#: [id number] Case Date: 07/30/2023 Surgeon: Surgeon(s) and Role: * Juni Velasco III, MD - Primary * Perez Rodriguez PA - Physician Top Frame Fitter Preoperative diagnosis: superficial phlebitis, venous insufficiency Postoperative [...] stockings. He saw Marcia Jackson PA-C at [facility] recently, who recommended 10 mg of Xarelto daily for 2 weeks after lower extremity venous surgery, and consideration of venous procedures to eliminate risk of recurrent phlebitis. She did not recommend hypercoagulable testing or anticoagulation currently. Right lower extremity venous duplex today demonstrates no deep venous incompetence or DVT. The great saphenous vein is incompetent from a deep venous signal maintenance technician at mid-thigh to the varicose veins of [...] area at the Outpatient Surgery Center at [facility], and all relevant consents were signed. In [...] wasconfirmed to be intravenous, and a 7 Guamanian sheath was placed. The radiofrequency catheter was [...] Phleb Veins - Extrem - To 20 ([id number]) 07/30/2023 12:06 PM EST Varicose veins of right lower extremity with pain Thrombophlebitis Venous insufficiency of right lower extremity Endovenous Ablation Incompetent Vein Radiofrequency 1St Vein (18262) 07/30/2023 12:06 PM EST Varicose veins of [...] Given 07/30/2023 11:27 AM EST 975 mg documented in this encounter Active and Recently [...] 100 mL infusion (COMPLETED) 2 g, Intravenous, FINANCIAL ADVISOR TO O.R., 1 dose, On Fri07/30/23 at [...] (Due) documented in this encounter Care Teams Development Scientist Relationship Specialty Start Date End Date Tamiko Delgado APRN [address] [place] [address] PCP - General Family Medicine 02/11/23 documented as of this encounter
--- OUTSIDE RECORDS SUMMARY | 2024-08-26 13:35 | XMS_ITS | Encounter Summary ---
Author Organization [facility] [place] [address] Care Team Providers Care Director Of Enterprise Applications Name Role Phone Tamiko Delgado SAQIB Primary Care Provider [phone] Reason for Visit * Consultation (Routine) - Closed Specialty Diagnoses / Procedures Referred By Fan lopez Referred To Contact Vascular Surgery Diagnoses Examination ROUTINE, HEBER/, RLE THROMBOSED SUPERFICIAL VEIN Jenise Thrasher PA [address] [place] [address] [facility] Surg [address] [place] [address] Referral ID Status Reason Start Date Expiration Date V isits Requested Visits Authorized [id number] Closed Consult, Test & Treat PCP Updated and/or Approved 02/11/2023 02/11/2024 6 6 Encounter Details Date Type Department Care Team (Late st Contact Info) Description 04/09/2023 1:00 PM EDT Office [place] [address] Juni Velasco III, MD [address] [place] [address] [place] [address] Varicose veins of right lower extremity with complications; Venous insufficiency of right lower extremity; Phlebitis of superficial vein of right lower extremity Social History Tobacco Use Types Packs/Day Years Used Date Smoking Tobacco: Never Smokeless Tobacco: Former Chew Quit: 2021 Tobacco Cessation:Counseling Given: Not Answered Sex and Gender Information Value Date Recorded Sex Assigned at Not on file Gender Identity Not on file Sexual Orientation Not on file documented as of this encounter Last Filed Vital Signs Vital Sign Reading Time Taken Comments Blood Pressure 133/73 04/09/2023 12:54 PM EDT Pulse 51 04/09/2023 12:54 PM EDT Temperature - - Respiratory Rate - - Oxygen Saturation - - Inhaled Oxygen Concentration - - Weight 79.4 kg (175 lb) 04/09/2023 12:54 PM EDT Height 182.9 cm (6') 04/09/2023 12:54 PM EDT Body Mass Index 23.73 04/09/2023 12:54 PM EDT documented in this encounter Progress Notes * Juni Velasco III, MD - 04/09/2023 1:00 PM EDT OUTPATIENT VASCULAR SURGERY CONSULTATION Reason for Visit: Symptomatic right lower extremity [...] varicose veins was documented on duplex at [facility]. He denies any antecedent history of s [...] clinical benefit. He sawMarcia Jackson PA-C at [facility] recently, who recommended 10 [...] Exam: Vitals Flowsheet Row Office Visit from 04/09/2023 in Vascular Surgery at [facility] Weight 79.4 kg (175 lb) Height 182.9 cm (6') BSA (Calculated - sq m) 2.01 sq meters BMI (Calculated) 23.73 Heart Rate 51 BP 133/73 Patient Position Sitting General - NAD, seen with his Neuro [...] Studies: Right lower extremity venous duplex at [facility] 02/04/23 (report): No DVT, there is phlebitis of varicose veins of the medial distal thigh through distal calf. Right lower extremity venous duplex at [facility] 04/09/23: Findings: Segment Right Reflux? Diameter (mm) [...] distal calf (reflux time >4.3 seconds). Incompetent hostel manager vein (5 mm diameter) originates from [...] lab database for comparison. Assessment and Plan: Vishal Ramirez presents with symptomatic right lower extremity varicose veins, with superficial phlebitis in varicose veins of the right leg that began in January. This is his first episode of phlebitis, may have been precipitated by running but there is no other obvious etiology. He has had resolution of pain at the site, is using compression stockings. He saw Marcia Jackson PA-C at [facility] recently, who recommended 10 mg of Xarelto daily for 2 weeks after lower extremity venous surgery, and consideration of venous procedures to eliminate risk of recurrent phlebitis. She didnot recommend hypercoagulable testing or anticoagulation currently. Right lower extremity venous duplex today demonstrates no deep venous incompetence or DVT. The great saphenous vein is incompetent from a deep venous hostel manager at mid-thigh to the varicose veins of [...] and a reasonable [facility] procedures. It [...] ensure that he does not have DVT. Thank you for the opportunity to participate in his care. Please contact me with any questions. documented in this encounter Plan of Treatment Scheduled Referrals Name Type Priority Associated Diagnoses Orde r Schedule Referral to Vascular Surgery Outpatient Referral Routine Examination Ordered: 02/11/2023 documented as of this encounter Visit Diagnoses Diagnosis Varicose veins of right lower extremity with complications Venous insufficiency of right lower extremity Phlebitis of superficial vein of right lower extremity documented in this encounter Care Teams Director Of Enterprise Applications Relationship Specialty Start Date End Date Tamiko Delgado APRN [address] [place] [address] PCP - General Family Medicine 02/11/23 documented as of this encounter
--- OUTSIDE RECORDS SUMMARY | 2024-08-26 13:35 | XMS_ITS | Encounter Summary ---
Author Organization [facility] [place] [address] Care Team Providers Care Nut Sifter Name Role Phone Tamiko Delgado SAQIB Primary Care Provider Reason for Visit * Auth/Cert (Routine) Specialty Diagnoses / Procedures Referred By Fan lopez Referred To Contact Diagnoses superficial phlebitis, venous insufficiency Procedures PRO ENDOVENOUS RF, 1ST VEIN PRO PHLEB VEINS - EXTREM 20+ ENDOVENOUS ABLATION THERAPY OF INCOMPETENT VEIN, EXTREMITY, FIRST VEIN (WRVU 5.3) STAB PHLEBECTOMY LEONARDO VEINS 1 EXTREMITY MORE 20 INCISIONS (WRVU 6) Juni Velasco III, MD [address] [place] [address] [place] [address] [facility] Referral ID Status Reason Start Date Expiration Date Visits Re quested Visits Authorized [id number] 1 1 Encounter Details Date Type Department Care Team (Late st Contact Info) Description 07/30/2023 12:04 PM EST Anesthesia Event [place] [id number] Raghu Hopper MD [facility] [place] [address] Nacho Rose MD [facility] [place] [address] Anesthesia Record Procedure Summary Procedure Name Responsible Anesthesiologist Anesthesia Start Time Anesthesia Stop Time ENDOVENOUS ABLATION THERAPY OF INCOMPETENT VEIN, EXTREMITY, FIRST VEIN (WRVU 5.3) (Right: Leg Upper) Raghu Hopper MD 07/30/23 1204 07/30/23 1401 Events Date Time Event Comment 07/30/2023 1130 1204 Start 1208 AN Verify 1208 An Start Data 1211 An Induction 1213 An Intubation 1213 Anesthesia Ready 1356 Extubation/LMA Out 1358 an stop data 1359 Recovery or ICU Handoff Massiel ent care was transferred to the destination unit staff after review of the patient's medical history, current anesthetic/surgical status and plan, according to the Provider Handoff Checklist. 1401 Stop Meds Name Total Midazolam 2 mg fentaNYL 100 mcg IV Lidocaine 50 mg Propofol 200 mg Propofol INF 408 mg Dexamethasone 8 mg Ondansetron 8 mg Ketorolac 30 mg ceFAZolin (Ancef) 2 g in dextrose 5% 100 mL infusion 2 g lactated ringers infusion 900 mL * Agents Name O2 Sevoflurane (et) * Blood No blood administrations on file. Lines, Drains, and Airways Type Details Placement Removal Incision 07/30/23; 1232; Righ t, upper, lower; leg 07/30/23 1232 by Michelle Joe RN PIV 07/30/23; 1136; [id number]-[id number] catheter system; 20 gauge; dorsal arch vein (top of hand), left; Anatomical Landmarks; intradermal injection; no longer indicated, removed per policy/procedure, catheter/device intact; 07/30/23; 1435 07/30/23 1136 by Rhea Puente RN 07/30/23 1435 by Lucy Gutierrez RN Supraglottic Mask Ventilation: Ea sy (1); LMA Type: air-Q; LMA Size: 4; Inserted by: Mitch TYLER; Removal Date: 07/30/23; Removal Time: 1356 07/30/23 1217 by Connie Meyer CRNA 07/30/23 1356 by Connie Meyer CRNA documented in this encounter Social History Tobacco Use Types Packs/Day Years Used Date Smoking Tobacco: Never Smokeless Tobacco: Former Chew Quit: 2021 Alcohol Use Standard Drinks/Week Comments Yes 1 (1 standard drink = 0.6 oz pur e alcohol) IPV Inpatient Questions Answer Date Recorded Does [...] on file documented as of this encounter OR Notes * Anesthesia Postprocedure Evaluation - Raghu Hopper MD - 07/30/2023 4:12 PM EST Department of Anesthesiology Post-procedure Note Patient: Vishal Ramirez Procedure Summary Date: 07/30/23 Room / Location: [address] [facility] Anesthesia Start: 1204 Anesthesia Stop: 1401 Procedures: ENDOVENOUS ABLATION THERAPY OF INCOMPETENT VEIN, EXTREMITY, FIRST VEIN (WRVU 5.3) (Right: Leg Upper) STAB PHLEBECTOMY LEONARDO VEINS 1 EXTREMITY 10-20 INCISIONS (WRVU 4.8) (Right) Diagnosis: Varicose veins of right lower extremity with pain Thrombophlebitis Venous insufficiency of right lower extremity (superficial phlebitis, venous insufficiency) Surgeons: Juni Velasco III, MD Responsible Provider: Raghu Hopper MD Anesthesia Type: general ASA Status: 2 All Anesthesia Providers: Anesthesiologist: Raghu Hopper MD TEMPLATE FITTER: Connie Meyer CRNA Vitals Value Taken Time BP 153/92 07/30/23 1431 Temp Pulse 70 07/30/23 1431 Resp 16 07/30/23 1431 SpO2 100 % 07/30/23 1431 Pain Level 0 07/30/23 1415 Patient Location: PACU/[facility] Level of Consciousness: Awake and Alert Pain Management: Satisfactory Analgesia PONV: None Cardiovascular Status: At Baseline Respiratory Status: At Baseline Postoperative Fluid Status: Possible Anesthetic Complications: NONE apparent at time of evaluation Final Primary Anesthesia Type: General (The anesthetic type performed was the same as planned.) Comments: * Anesthesia Preprocedure Evaluation - Raghu Hopper MD - 07/30/2023 11:29 AM EST Pre-Anesthesia Evaluation for: Vishal Ramirez a 43 y.o. male. Procedure(s): ENDOVENOUS ABLATION THERAPY OF INCOMPETENT VEIN, EXTREMITY, FIRST VEIN (WRVU 5.3) STAB PHLEBECTOMY LEONARDO VEINS 1 EXTREMITY MORE 20 INCISIONS (WRVU 6) Patient Active Problem List Diagnosis Date Noted ??? Varicose veins of lower extremities with complications 04/13/2023 ??? Venous insufficiency of right lower extremity 04/13/2023 ??? Phlebitis of superficial vein of right lower extremity 04/13/2023 History reviewed. No pertinent past medical history. History reviewed. No pertinent surgical history. Social History Tobacco Use ??? Smoking status: Never ??? Smokeless tobacco: Former Types: Chew Quit date: 2021 Substance Use Topics ??? Alcohol use: Yes Alcohol/week: 1.0 standard drink of alcohol Types: 1 Cans of beer per week Social History Substance and Sexual Activity Drug Use Yes ??? Frequency: 1.0 times per week ??? Types: Marijuana No Known Allergies Medications: MAR and/or home medications have been reviewed. Physical Exam: Preprocedure Vitals Current as of 07/30/23 1129 BP: 123/88 Pulse: 51 Resp: 18 SpO2: 98 Temp: 36.1 ??C (97 ??F) Height: 182.9 cm (6') (07/30/23) Weight: 81.6 kg (180 lb) (07/30/23) BMI: 24.41 IBW: 77.6 kg (171 lb 1.9 oz) Last edited 07/30/23 1120 by CL Airway Assessment: Mallampati: I TM distance: >3 FB Neck ROM: full Cardiovascular Assessment: system normal Pulmonary Assessment: pulmonary exam normal Dental Assessment: - normal exam Misc Assessment: Other exam findings: BP Readings from Last 3 Encounters: 07/30/23 : 123/88 04/09/23 : 133/73 02/04/23 : (!) 142/100 Last Filed Perioperative Cognitive Screening None Anesthesia Plan: ASA 2 general, with a(n) intravenous induction 43 y/o male for endovenous ablation right leg. No PMH, social ETOH, weekly marijuana NKDA NPO adequate No prior anesthetics Plan for GA, LMA, acetaminophen. Informed Consent: Anesthetic plan and risks discussed with patient. Plan discussed with TEMPLATE FITTER. Anesthesia Screening documented in this encounter Plan of Treatment Not on file documented as of this encounter Visit Diagnoses Not on filedocumented in this encounter Administered Medications Inactive Administered Medications - up to 3 most recent administrations Medication Order MAR Action Action Date Dose Rate Site ceFAZolin (Ancef) 2 g in dextrose 5% 100 mL infusion 2 g, Intravenous, SENIOR STORAGE ENGINEER TO O.R., 1 dose, On Fri07/30/23 at 1130, Administer over 30 Minutes, Redose after 4 hours., Day of Surgery (Day of Procedure), Indication for (Active or Suspected): Prophylaxis Given 07/30/2023 12:16 PM EST 2 g dexAMETHasone (Decadron) injection Intravenous, PRN, Starting on Fri07/30/23 at 1216, Until Fri07/30/23 at 1401, Anesthesia Intra-op, Routine Given 07/30/2023 12:16 PM EST 8 mg fentaNYL (pf) (50 mcg/mL) multi-dose injection Intravenous, PRN, Starting on Fri07/30/23 at 1209, Until Fri07/30/23 at 1401, Anesthesia Intra-op, Routine Given 07/30/2023 1:22 PM EST 25 mcg Given 07/30/2023 1:08 PM EST 25 mcg Given 07/30/2023 12:25 PM EST 25 mcg ketorolac (Toradol) (30 mg/mL) injection Intravenous, PRN, Starting on Fri07/30/23 at 1345, Until Fri07/30/23 at 1401, Anesthesia Intra-op, Routine Given 07/30/2023 1:45 PM EST 30 mg lactated ringers infusion 1,000 mL, at 100 mL/hr, Intravenous, CONTINUOUS, Starting on Fri07/30/23 at 1130, Until Fri07/30/23 at 1444, Day of Surgery (Day of Procedure) New Bag 07/30/2023 12:04 PM EST lidocaine (pf) (Xylocaine) (20 mg/mL) 2% injection syringe Intravenous, PRN, Starting on Fri07/30/23 at 1208, Until Fri07/30/23 at 1401, Anesthesia Intra-op, Routine Given 07/30/2023 12:08 PM EST 50 mg midazolam (pf) (Versed) (1 mg/mL) multi-dose injection Intravenous, PRN, Starting on Fri07/30/23 at 1204, Until Fri07/30/23 at 1401, Anesthesia Intra-op, Routine Given 07/30/2023 12:04 PM EST 2 mg ondansetron (pf) (Zofran) (2 mg/mL) injection Intravenous, PRN, Starting on Fri07/30/23 at 1227, Until Fri07/30/23 at 1401, Anesthesia Intra-op, Routine Given 07/30/2023 1:45 PM EST 4 mg Given 07/30/2023 12:27 PM EST 4 mg propofoL (Diprivan) (10 mg/mL) infusion Intravenous, CONTINUOUS PRN, Starting on Fri07/30/23 at 1211, Until Fri07/30/23 at 1401, Anesthesia Intra-op, Routine New Bag 07/30/2023 12:11 PM EST 50 mcg/kg/min 24.48 mL/hr propofoL (Diprivan) 10 mg/mL bolus injection (Anesthesia) Intravenous, PRN, Starting on Fri07/30/23 at 1211, Until Fri07/30/23 at 1401, Anesthesia Intra-op Given 07/30/2023 12:11 PM EST 200 mg documented in this encounter Care Teams Nut Sifter Relationship Specialty Start Date End Date Tamiko Delgado APRN [address] [place] [address] PCP - General Family Medicine 02/11/23 documented as of this encounter
--- OUTSIDE RECORDS SUMMARY | 2024-08-26 13:35 | XMS_ITS | Encounter Summary ---
Author Organization [place] [address] Care Team Providers Care Crystal Growing Technician Name Role Phone Tamiko Delgado APRN Primary Care Provider [phone] Reason for Referral * Consultation (Routine) - Closed Specialty Diagnoses / Procedures Referred By Fan lopez Referred To Contact Gastroenterology Diagnoses Encounter for screening colonoscopy Gogo Monzon MD [address] [place] [address] [facility] [address] [place] [address] Referral ID Status Reason Start Date Expiration Date V isits Requested Visits Authorized [id number] Closed Surgical PCP Updated and/or Approved 05/03/2024 11/01/2024 1 1 Encounter Details Date Type Department Care Team (Latest Contact Info) Description 05/29/2024 Transcribe Orders eDH Incoming Referrals [phone] Tamiko Delgado APRN [address] [place] [address] Encounter for screening colonoscopy Social History Tobacco Use Types Packs/Day Years Used Date Smoking Tobacco: Never Smokeless Tobacco: Former Chew Quit: 2021 Alcohol Use Standard Drinks/Week Comments Yes 1 (1 standard drink = 0.6 oz pur e alcohol) [facility] Inpatient Questions Answer Date Recorded [...] Type Priority Associated Diagnoses Orde r Schedule REFERRAL TO COLONOSCOPY PROCEDURE Outpatient Referral Routine Encounter for screening colonoscopy Ordered: 05/29/2024 documented as of this encounter Visit Diagnoses Diagnosis Encounter for screening colonoscopy Special screening for malignant neoplasms, colon documented in this encounter Care Teams Crystal Growing Technician Relationship Specialty Start Date End Date Tamiko Delgado APRN [address] [place] [address] PCP - General Family Medicine 02/11/23 documented as of this encounter
--- OUTSIDE RECORDS SUMMARY | 2024-08-26 13:35 | XMS_ITS | Clinical Summary ---
Author Organization [facility] Address [address] [place] [address] Care Team Providers Care Machine Woodworking Sander Name Role Phone Gogo Monzon MD Primary Care Provider [phone] Allergies No known active allergies Medications No known medications Active Problems Problem Noted Date Diagnosed Date Hypercoagulable state ([facility]) 03/07/2023 Overview (04/11/2023): 1. 02/04/23: provoked superficial venous thrombosis of a branch off the right GSV in the setting of intense training for ultramarathon/dehydration/variscose veins - Xarelto 10 mg once daily x 45 days - 03/20/23 Venous US ([facility]): persistent thrombus in branch off right GSV. Vishal asymptomatic at this point - [place] [facility] [place]- if vascular procedure pursued, would advise Xarelto 10 mg daily x 2 weeks after for ppx Thrombosis risk factors: varicose veins (which lead to bveouns pooling/stasis) and male sex (higher risk of VTE recurrence) Family Hx of VTE: none Surgical History Surgery Date Site/Laterality Comments VASECTOMY WISDOM TOOTH EXTRACTION Medical History Medical History Date Comments Asymptomatic varicose veins Family History Medical History Relation Comments Venous thrombosis Neg Hx Social History Tobacco Use Types Packs/Day Years [...] 8:17 EDT Sexual Orientation Not on file Obstetrics History Plan of Treatment Health Maintenance Due Date Last Done Comments Hepatitis C Screen 1982 Hepatitis B Vaccine (1 of 3 - 19+ 3-dose series) 04/05 COVID-19 Vaccine (2023- season) 2024 Insurance Care Teams Machine Woodworking Sander Relationship Specialty Start Date End Date Gogo Monzon MD [address] [place] [address] PCP - General Family Medicine - Primary Care 03/03/23
--- OUTSIDE RECORDS SUMMARY | 2024-08-26 13:35 | XMS_ITS | Clinical Summary ---
Author Organization [facility] Address [facility] [place] [address] Care Team Providers Care Bending Press Operator Name Role Phone Tamiko Delgado APRN Primary Care Provider Allergies No known active allergies Medications Medication Sig Dispensed Refills Start Date End Date Status rivaroxaban (Xarelto) 10 mg tablet Take 1 tablet by mouth daily. 14 tablet 07/31/2023 Active Active Problems Problem Noted Date Diagnosed Date Varicose veins of lower extremities with complic ations 04/13/2023 Venous insufficiency of right lower extremity Phlebitis of superficial vein of right lower ext remity 04/13/2023 Encounters Date Type Department Care Team Description 05/29/2024 Transcribe Orders eD Incoming Referrals [phone] Tamiko Delgado APRN Encounter for screening colonoscopy from Last 3 Months Social History Tobacco Use Types Packs/Day Years Used Date Smoking Tobacco: Never Smokeless Tobacco: Former Chew Quit: 2021 Tobacco Cessation:Counseling Given: Not Answered Alcohol Use Standard Drinks/Week Comments Yes 1 (1 standard drink = 0.6 oz pur e alcohol) [facility] Inpatient Questions Answer Date Recorded [...] on file Sexual Orientation Not on file Last Filed Vital Signs Vital Sign Reading Time Taken Comments Blood Pressure 149/65 08/12/2023 9:15 AM EST Pulse 58 08/12/2023 9:15 AM EST Temperature 36.5 ??C (97.7 ??F) 07/30/2023 2:00 PM ES T Respiratory Rate 16 07/30/2023 2:31 PM EST Oxygen Saturation 100% 07/30/2023 2:31 PM EST Inhaled Oxygen Concentration - - Weight 79.4 kg (175 lb) 08/12/2023 9:15 AM EST Height 180.3 cm (5' 11) 08/12/2023 9:15 AM EST Body Mass Index 24.41 08/12/2023 9:15 AM EST Plan of Treatment Health Maintenance Due Date Last Done Comments HIV screen 2000 Hepatitis C Screening 2000 Lipid Screening 2000 Hepatitis B vaccine (0-59 yrs) (1) 2001 Tetanus/Diphtheria/Pertussis Vaccines (1 - Tdap) 04/05 Covid-19 Vaccine (1 - 2023- season) 2024 Influenza (Flu) vaccine (1 o f 1 - Influenza standard series) 03/28/2024 Care Teams Bending Press Operator Relationship Specialty Start Date End Date Tamiko Delgado APRN [address] [place] [address] PCP - General Family Medicine 02/11/23
--- OUTSIDE RECORDS SUMMARY | 2024-08-26 13:35 | XMS_ITS | Encounter Summary ---
[place] [address] Care Team Providers Care Flatwork Catcher Name Role Phone Tamiko Delgado APRN Primary Care Provider [phone] Encounter Details Date Type Department Care Team (Latest Contact Info) Description 08/12/2023 Travel Social History Tobacco Use Types Packs/Day [...] on filedocumented in this encounter Care Teams Flatwork Catcher Relationship Specialty Start Date End Date Tamiko Delgado APRN [address] [place] [address] PCP - General Family Medicine 02/11/23 documented as of this encounter
--- OUTSIDE RECORDS SUMMARY | 2024-08-26 13:35 | XMS_ITS | Encounter Summary ---
Author Organization [facility] [place] [address] Care Team Providers Care Supervisor Plastic Sheets Name Role Phone None Primary Care Provider Unavailabl e Encounter Details Date Type Department Care Team (Late st Contact Info) Description 02/04/2023 10:30 AM EDT Ancillary Procedure Radiology Library at [facility] [place] [id number] Vargas Ang MD Social History Tobacco Use Types Packs/Day Years Used Date Smoking Tobacco: Never Assessed Sex and Gender Information Value Date Recorded Sex Assigned at Not on file Gender Identity Not on file Sexual Orientation Not on file documented as of this encounter Plan of Treatment Not on file documented as of this encounter Procedures Procedure Name Priority Date/Time Associated Diagnosis Comments FILM LIBRARY STORAGE ONLY ULTRASOUND STUDY Routine 02/04/2023 10:28 AM EDT documented in this encounter Results * Film Library- Storage Only Ultrasound Study (02/04/2023 10:28 AM EDT) Narrative RAD - 02/04/2023 10:28 AM EDT This exam is auto-finalizing. It's purpose is for storage only. Vargas Ang MD IMG FILM LIBRARY ORD ERABLES [facility] Pam [place] documented in this encounter Visit Diagnoses Not on filedocumented in this encounter Care Teams Supervisor Plastic Sheets Relationship Specialty Start Date End Date None None PCP - General 02/04/23 02/10/23 documented as of this encounter
--- OUTSIDE RECORDS SUMMARY | 2024-08-26 13:35 | XMS_ITS | Encounter Summary ---
Author Organization [facility] [place] [address] Care Team Providers Care Ampoule Sealer Name Role Phone Tamiko Delgado RESTAURANT SERVER Primary Care Provider [phone] Encounter Details Date Type Department Care Team (Late st Contact Info) Description 08/01/2023 10:05 PM EST Ancillary Procedure Radiology Library at [facility] [place] [id number] Tamiko Delgado APRN [address] [place] [address] Social History Tobacco Use Types Packs/Day Years Used Date Smoking Tobacco: Never Smokeless Tobacco: Former Chew Quit: 2021 Alcohol Use Standard Drinks/Week Comments Yes 1 (1 standard drink = 0.6 oz pur e alcohol) [facility] Inpatient Questions Answer Date Recorded Does Anyone [...] FILM LIBRARY STORAGE ONLY ULTRASOUND STUDY Routine 08/01/2023 10:03 PM EST documented in this encounter Results * Film Library- Storage Only Ultrasound Study (08/01/2023 10:03 PM EST) Narrative [facility] - 08/01/2023 10:03 PM EST This exam is auto-finalizing. It's purpose is for storage only. Tamiko Delgado APRN [employer] FILM LIBRARY ORD ERABLES [facility] [place], [place] documented in this encounter Visit Diagnoses Not on filedocumented in this encounter Care Teams Ampoule Sealer Relationship Specialty Start Date End Date Tamiko Delgado APRN [address] [place] [address] PCP - General Family Medicine 02/11/23 documented as of this encounter
--- OUTSIDE RECORDS SUMMARY | 2024-08-26 13:36 | XMS_ITS | Encounter Summary ---
Author Organization [facility] Address [address] [place] [address] Care Team Providers Care Administrative Services Officer Name Role Phone Gogo Monzon MD Primary Care Provider [phone] Reason for Visit * (Routine/Next Available) - Receiving Office to Obtain Authorization Specialty Diagnoses / Procedures Referred By Contac t Referred To Contact Procedures US OUTSIDE IMAGES BODY Imaging, External Referral ID Status Reason Start Date Expiration Date Visits Requested Visits Authorized [id number] Receiving Office to Obtain Authorization 03/21/2023 1 1 Encounter Details Date Type Department Care Team (Latest Contact Info) Description 03/20/2023 - 03/20/2023 23:59 EDT Hospital Encounter [facility] [place] Discharge Disposition: Home or Self Care Social History Tobacco Use Types Packs/Day [...] on file documented as of this encounter Medications at Time of Discharge rivaroxaban (XARELTO) 10 mg tablet tablet Take 1 Tablet by mouth daily. 04/11/2023 documented as of this encounter Discharge Disposition Disposition Code Departure Means Destination Home or Self Care documented in this encounter Plan of Treatment Not on file documented as of this encounter Procedures Procedure Name Priority Date/Time Associated Diagnosis Comments US OUTSIDE IMAGES BODY Routine 03/20/2023 8:15 EDT documented in this encounter Results * US OUTSIDE IMAGES BODY (03/20/2023 8:15 EDT) Narrative 03/21/2023 8:15 EDT This is a non-reportable exam. us External Imaging IMG OTHER IMAGING ORDERABLES Fi nal Result documented in this encounter Visit Diagnoses Not on filedocumented in this encounter Care Teams Administrative Services Officer Relationship Specialty Start Date End Date Gogo Monzon MD [address] [place] [address] PCP - General Family Medicine - Primary Care 03/03/23 documented as of this encounter
--- OUTSIDE RECORDS SUMMARY | 2024-08-26 13:36 | XMS_ITS | Encounter Summary ---
Author Organization [facility] Address [address] [place] [address] Care Team Providers Care Bookbinding Machine Operator Name Role Phone Unavailable Primary Care Provider Unavailabl e Reason for Visit * (Routine/Next Available) - Receiving Office to Obtain Authorization Specialty Diagnoses / Procedures Referred By Contac t Referred To Contact Procedures US OUTSIDE IMAGES OTHER Imaging, External Referral ID Status Reason Start Date Expiration Date Visits Requested Visits Authorized [id number] Receiving Office to Obtain Authorization 02/18/2023 1 1 Encounter Details Date Type Department Care Team (Latest Contact Info) Description 02/12/2023 - 02/12/2023 23:59 EDT Hospital Encounter [facility] [place] Discharge Disposition: Home or Self Care Social History Tobacco Use Types Packs/Day Years Used Date Smoking Tobacco: Never Assessed Sex and Gender Information Value Date Recorded Sex Assigned at Not on file Legal Sex Male 10:44 EDT Gender Identity Male 03/03/2023 8:17 EDT Sexual Orientation Not on file documented as of this encounter Discharge Disposition Disposition Code Departure Means Destination Home or Self Care documented in this encounter Plan of Treatment Not on file documented as of this encounter Procedures Procedure Name Priority Date/Time Associated Diagnosis Comments US OUTSIDE IMAGES OTHER Routine 02/12/2023 15:03 EDT documented in this encounter Results * US OUTSIDE IMAGES OTHER (02/12/2023 15:03 EDT) Narrative 02/18/2023 15:04 EDT This is a non-reportable exam. us External Imaging IMG OTHER IMAGING ORDERABLES Fi nal Result documented in this encounter Visit Diagnoses Not on filedocumented in this encounter
--- OUTSIDE RECORDS SUMMARY | 2024-08-26 13:36 | XMS_ITS | Encounter Summary ---
Author Organization [facility] Address [address] [place] [address] Care Team Providers Care Manager Car Name Role Phone Gogo Monzon MD Primary Care Provider [phone] Reason for Visit * Reason Onset Date Comments Appointment Related 03/28/2023 Encounter Details Date Type Department Care Team (Late st Contact Info) Description 03/28/2023 Telephone [facility] Hematology & Oncology - [address] [address] Marcia Jackson PA-C [address] [place] [address], [address] [place] [address] Appointment Related Social History Tobacco Use Types Packs/Day Years [...] encounter Miscellaneous Notes * Telephone Encounter - Ben Calvo - 03/28/2023 0902 EDT lmom for pt about next appt 04/17 at 220 via zoom with Rs left PAC# documented in this encounter Plan of Treatment Not on file documented as of this encounter Visit Diagnoses Not on filedocumented in this encounter Care Teams Manager Car Relationship Specialty Start Date End Date Gogo Monzon MD [address] [place] [address] PCP - General Family Medicine - Primary Care 03/03/23 documented as of this encounter
--- OUTSIDE RECORDS SUMMARY | 2024-08-26 13:36 | XMS_ITS | Encounter Summary ---
Author Organization [facility] Address [address] [place] [address] Care Team Providers Care Cuff Stitcher Name Role Phone Gogo Monzon MD Primary Care Provider [phone] Reason for Visit * Reason Comments Follow-up Encounter Details Date Type Department Care Team (Late st Contact Info) Description 03/27/2023 15:20 EDT Telemedicine [facility] Cancer Center Hematology & Oncology - [address] [id number] Marcia Jackson PA-C [address] [place] [address], [address] [place] [address] Hypercoagulable state (HCC-CMS) (Primary Dx) Social History Tobacco Use Types Packs/Day Years [...] on file documented as of this encounter Progress Notes * Marcia Jackson PA-C - 03/27/2023 1520 EDT Images from the original note were not included. Thrombosis & Hemostasis Program (THP) Follow Up Visit Date of Service: 03/27/2023 Reason for Visit: f/u superficial venous thrombosis of the RLE (Dx 02/04/23) Problem List: Patient Active Problem List Diagnosis ??? Hypercoagulable state ([facility]) 1. 02/04/23: provoked superficial venous thrombosis of a branch off the right GSV in the setting of intense training for ultramarathon/dehydration/variscose veins - Xarelto 10 mg once daily x 45 days - 03/20/23 Venous US ([facility]): persistent thrombus in branch off right GSV. Vishal asymptomatic at thispoint - seeing [facility] Vasc 04/09/23 re: varicose vein management- if vascular procedure, would advise Xarelto 10 mg daily x 2 weeks after for ppx Thrombosis risk factors: varicose veins (which lead to bveouns pooling/stasis) and male sex (higherrisk of VTE recurrence) Family Hx of VTE: none Telemedicine visit information: The concept of ???Telemedicine?? has been described to the patient. Patient has been informed of the anticipated benefits and possible risks. Patient understands the information provided regarding telemedicine, has had the opportunity to ask questions about this information, and all questions havebeen answered to patient???s satisfaction. Patient consents for the use of telemedicine in his/her medical care and authorizes the transmission of any relevant medical information to providers and their staff involved in patient???s medical or mental health care. Today's visit was provided through telemedicine video conferencing: The location of the patient : home in [place] The location of the provider: private home office in [place] Participants: patient, provider Subjective: Vishal returns to the [facility] clinic via telemedicine for scheduled follow up. He reports: - superficial venous thrombosis symptoms have resolved- has no pain despite ramping his exercise/activity back up to full strength - he does have a few firmer sections to the touch in the calf- no erythema/warmth/tenderness to deep palpation - no LE edema, CP, SOB, MARTEL - finds it interesting that his RLE is affected by multiple ailments (but not his LLE)- had SVT, hip flexor issues, murrieta splints, etc - has a couple doses of Xarelto 10 mg daily left - no bleeding side effects - wearing compression socks - reviewed results of his [facility] US obtained since last visit - seeing Vascular at [facility] on 04/09- will have repeat US and visit with Vascular surgeon. Wants to follow up with Hand Painter after that visit ROS: ROS - pertinent positives and negatives as above Social History: Patient reports that he has never smoked. He quit smokeless tobacco use about 7 months ago. His smokeless tobacco use included chew. He reports current alcohol use of about 4.0 standard drinks of alcohol per week. He reports that he does not use drugs. Medications: Outpatient Encounter Medications as of 03/27/2023: ??? rivaroxaban (XARELTO) 10 mg tablet tablet, 10 mg, oral, DAILY Allergies: Patient has No Known Allergies. Physical Exam: There were no vitals filed for this visit. There is no height or weight on file to calculate BMI. appears well, alert and oriented x 3, no cough, no respiratory distress, clear and fluent speech, no scleral icterus, no jaundice, no visible rashes. Labs: Labs at [facility] 02/04/23: ?? Imagin02/04/23 RLE Venous US ([facility]) 02/12/23 RLE Venous US ([facility]) 03/20/23 RLE Venous US ([facility]): Assessment: Vishal Ramirez is a 42 year old male with PMHx notable for previously asymptomatic varicose veins whopresents to the [facility] clinic via telemedicine today for follow up regarding a superficial venous thrombosis in a branch off the R greater saphenous vein diagnosed 02/04/23 at [facility]. This occurred in the setting of dehydration and ultra-marathon training. He completed a course of Xarelto 10 mg once daily x 45 days. He has not had any bleeding side effects. Currently reports his symptoms related to thesuperficial venous thrombosis have resolved and he is back to full intensity exercise. He had a repeat RLE Venous US at [facility] on 03/20/23 showing persistent thrombus in the right branch off GSV with noDVT- this will likely become chronic thrombus/scarring. ?? We have previously reviewed the difference between superficial venous thromboses and DVTs and discussed his thrombosis risk factors including varicose veins (which lead to venous pooling/stasis) and male sex (higher risk of VTE recurrence). He does not have a prior personal nor family Hx of VTE. A 1-time, provoked superficial venous thrombosis is not followed by prison anticoagulation, nor do we typically order a thrombophilia evaluation (especially without a family Hx of VTE) for such a presentation. If he develops recurrent superficial venous thrombosis, or a DVT/PE, we can reconsider thrombophilia testing but I think at this point it will likely be very low yield. ?? I have advised routine use of strong compression socks (at least 20-30 mmHg) and a non-urgent consult with Vascular surgery regarding symptomatic varicose veins (has an appt with [facility] Vascular 04/09/23). IF he is deemed a candidate for a vascular surgery intervention, I suggest Xarelto 10 mg once daily for 2 weeks following the procedure for post-op thromboprophylaxis based on his history. I do not think he warrants anything beyond typical thromboprophylaxis for average- risk patients otherwise (at this point). We reviewed non-pharmacologic ways to reduce the risk of VTE including maintaining ahealthy weight, staying active, staying well-hydrated, avoiding smoking, and reducing venous pooling with good compression socks. ?? Vishal will complete the last few doses of his 45-day course of Xarelto and then stop. We reviewed the signs/symptoms of thrombosis he should monitor for thereafter and he knows to contact me for repeat US if those occur. Vishal requested a follow up visit after his visit at [facility] in a few weeks so wewill touch base then, sooner if needed. ?? Plan: - complete 45 day course of Xarelto 10 mg once daily as previously advised - following that, Vishal will monitor for thrombosis symptoms while off Xarelto, repeat US to be ordered if new symptoms occur - reviewed role of compression socks in reducing venous pooling (especially with concurrent varicose veins) - agree with Vascular referral ([facility] 04/09/23) regarding varicose vein management AFTER Xarelto course completes. If he has a vein procedure, would consider thromboprophylaxis using Xarelto 10 mg oncedaily for 2 weeks following that - reviewed non-pharmacologic ways to reduce the risk of VTE - Reviewed the signs and symptoms of superficial venous thrombosis, DVT and PE. - Follow up: 04/17/23 via Zoom Please contact my office with questions/concerns. I spent a total of 30 minutes on the date of this encounter meeting with the patient and reviewing documentation/coordinating care as described in the above note. Marcia Renetta, PA-C 03/28/2023 6:07 Thrombosis and Hemostasis Program CC: Gogo Monzon documented in this encounter Plan of Treatment Not on file documented as of this encounter Visit Diagnoses Diagnosis Hypercoagulable state (HCC-CMS)- Primary Primary hypercoagulable state documented in this encounter Care Teams Cuff Stitcher Relationship Specialty Start Date End Date Gogo Monzon MD [address] [place] [address] PCP - General Family Medicine - Primary Care 03/03/23 documented as of this encounter
--- OUTSIDE RECORDS SUMMARY | 2024-08-26 13:36 | XMS_ITS | Encounter Summary ---
Author Organization [facility] Address [address] [place] [address] Care Team Providers Care Supply Room Clerk Name Role Phone Gogo Monzon MD Primary Care Provider [phone] Reason for Visit * Reason Comments Follow-up Encounter Details Date Type Department Care Team (Late st Contact Info) Description 04/10/2023 13:40 EDT Telemedicine [facility] Cancer Center Hematology & Oncology - [address] [id number] Marcia Jackson PA-C [address] [place] [address], [address] [place] [address] Hypercoagulable state (HCC-CMS) (Primary Dx) [...] on file documented as of this encounter Patient Instructions * Patient Instructions* Marcia Jackson PA-C - 04/10/2023 13:40 EDT Benjamín Ramirez, it was so nice to see you again. As discussed during our visit, my recommendations are as follows: - remain off blood thinners - I do recommend continued use of compression socks - monitor for symptoms of superficial blood clots or DVT (see below) lasting > 24 hrs- contact our office if you develop symptoms to get an ultrasound ordered - contact me if you decide to proceed with vascular surgery at [facility] with the surgery date. I am happy to prescribe 2 weeks of post op Xarelto for you and send a plan to you/your surgeon - follow up as needed General reminders: Signs and symptoms of DVT (clot in a deep vein) include one-sided leg or arm pain, swelling, or increased redness/heat to an area. Please seek medical evaluation should any of these occur. Signs and symptoms of a pulmonary embolism (clot in the lungs) include shortness of breath, dry cough, coughing up blood, and/or chest pain. If you develop any of these symptoms, please seek emergency medical evaluation. Feel free to contact me via [facility] [employer] or call the office if you have any questions/concerns. Thanks, Marcia Jackson PA-C documented in this encounter Progress Notes * Marcia Jackson PA-C - 04/10/2023 1340 EDT Images from the original note were not included. Thrombosis & Hemostasis Program (THP) Follow Up Visit Date of Service: 04/10/2023 Reason for Visit: f/u superficial venous thrombosis of the RLE (Dx 02/04/23) Assessment: Vishal Ramirez is a 43 year old male with PMHx notable for??previously asymptomatic??varicose veins who presents to the THP clinic via telemedicine today for follow up regarding a superficial venous thrombosis in a branch off the R greater saphenous vein diagnosed 02/04/23 at [facility]. This occurred in the setting of dehydration and ultra-marathon training. He completed a course of Xarelto 10 mg once daily x 45 days without any bleeding side effects. He had a repeat RLE Venous US at [facility] on 03/20/23 showing persistent thrombus in the right branch off GSV with no DVT- this will likely become chronic thrombus/scarring. ?? We have previously reviewed the difference between superficial venous thromboses and DVTs and discussed his thrombosis risk factors including varicose veins (which lead to venous pooling/stasis) and male sex (higher risk of VTE recurrence). He does not have a prior personal nor family Hx of VTE. ?? A 1-time, provoked superficial venous thrombosis is not followed by long winder tender anticoagulation, nor do we typically order a thrombophilia evaluation (especially without a family Hx of VTE) for such a presentation. ??If he develops recurrent superficial venous thrombosis, or a DVT/PE, we can reconsider thrombophilia testing but I think at this point it will likely be very low yield. ?? He met with [facility] vascular surgery yesterday for consult- note pending but he reports they discussedeither watchful waiting or RFA in E. If Vishal decides to proceed with vascular intervention, I suggest Xarelto 10 mg once daily for 2 weeks following the procedure for post-op thromboprophylaxis based on his history. I do not think he warrants anything beyond typical thromboprophylaxis for average-risk patients otherwise (at this point). We reviewed non- pharmacologic ways to reduce the risk of VTE including maintaining a healthy weight, staying active, staying well-hydrated, avoiding smoking,and reducing venous pooling with good compression socks. ?? We reviewed the signs/symptoms of thrombosis he should monitor for thereafter and he knows to contact me for repeat US if those occur. Vishal requested a follow up as needed- he was encouraged to reach out with a date of surgery if he proceeds and I will send his Xarelto script and distribute a Thrombosis Action Plan. ?? Plan: - remain off anticoagulation - Vishal will monitor for superficial venous thrombosis/DVT symptoms while off Xarelto, repeat US dyllan ordered if new symptoms occur - reviewed role of compression socks in reducing venous pooling (especially with concurrent varicose veins) -??Vishal will contact me with a surgery date if he decides to proceed with varicose vein surgery/RFA with [facility]. ??If he has a vein procedure, would consider thromboprophylaxis??using [id number] mg once daily for 2 weeks following that -??reviewed??non-pharmacologic ways to reduce the risk of VTE?? - Follow up: as needed Please contact my office with questions/concerns. I spent a total of 25 minutes on the date of this encounter meeting with the patient and reviewing documentation/coordinating care as described in the above note. Marcia Jackson PA-C 04/11/2023 6:22 Thrombosis and Hemostasis Program Problem List: Patient Active Problem List Diagnosis ??? Hypercoagulable state ([facility]) 1. 02/04/23: provoked superficial venous thrombosis of a branch off the right GSV in the setting of intense training for ultramarathon/dehydration/variscose veins - Xarelto 10 mg once daily x 45 days - 03/20/23 Venous US ([facility]): persistent thrombus in branch off right GSV. Vishal asymptomatic at thispoint - following with [facility]- if vascular procedure pursued, would advise Xarelto 10 mg daily x 2weeks after for ppx Thrombosis risk factors: varicose veins (which lead to bveouns pooling/stasis) and male sex (higherrisk of VTE recurrence) Family Hx of VTE: none Subjective: Vishal Ramirez is a 43 y.o. male who presents to the THP clinic today via telemedicine for follow up. Vishal reports: - off Xarelto now - He was seen by [facility] yesterday for repeat US and appt with the Vascular surgeon. Per discussion with Vishal ([facility] note is pending), can watchful wait or proceed with RFA in the RLE - had pain along right GSV from 8 am to 2 pm several days ago that spontaneously resolved and did not recure. No erythema/warmth/edema. No other instances since stopping Xarelto - Vascular US at [facility] shows chronic thrombus and some segments of venous reflux - he is leaning toward proceeding with surgery at this point, comfortable reaching out to me with asurgery date if he ends up going that route Medications: Outpatient Encounter Medications as of 04/10/2023: ??? [DISCONTINUED] rivaroxaban (XARELTO) 10 mg tablet tablet, 10 mg, oral, DAILY Physical Exam: There were no vitals filed for this visit. There is no height or weight on file to calculate BMI. appears well, alert and oriented x 3, no cough, no respiratory distress, clear and fluent speech, no scleral icterus, no jaundice, no visible rashes. Labs: Labs at [facility] 02/04/23: Imagin02/04/23 RLE Venous US ([facility]) 02/12/23 RLE Venous US ([facility]) ? 03/20/23 RLE Venous US ([facility]): 04/09/23 RLE Venous Insufficiency study ([facility]): Interpretation: Right: Findings consistent with superficial venous valvular incompetence at the saphenofemoral junction and great saphenous vein from the mid thigh to distal thigh, and from mid calf to distal calf (reflux time >4.3 seconds). Incompetent dye line operator vein (5 mm diameter) originates from the GSV at mid thigh. Varicose veins originate from the GSV at the distal thigh and at mid calf. Superficial thrombus in the varicose veins at proximal to mid calf, without great saphenous vein phlebitis. No evidence of deep venous valvular incompetence. No evidence of deep (femoropopliteal) thrombus. Telemedicine visit information: The concept of ???Telemedicine?? [...] conferencing: The location of the patient : [place] in [place] The location of the provider: private [place] Participants: patient, provider CC: Gogo Monzon documented in this encounter Plan of Treatment Not on file documented as of this encounter Visit Diagnoses Diagnosis Hypercoagulable state ([facility])- Primary Primary hypercoagulable state documented in this encounter Discontinued Medications Medication Sig Discontinue Reason Start Date End Da te rivaroxaban (XARELTO) 10 mg tablet tablet Take 1 Tablet by mouth daily. 04/11/2023 documented as of this encounter Care Teams Supply Room Clerk Relationship Specialty Start Date End Date Gogo Monzon MD [address] [place] [address] PCP - General Family Medicine - Primary Care 03/03/23 documented as of this encounter
--- OUTSIDE RECORDS SUMMARY | 2024-08-26 13:36 | XMS_ITS | Encounter Summary ---
Author Organization [facility] Address [address] [place] [address] Care Team Providers Care Product Picker Name Role Phone Gogo Monzon MD Primary Care Provider [phone] Encounter Details Date Type Department Care Team (Late st Contact Info) Description 05/29/2021 Lab Requisition [facility] Pathology & Laboratory Medicine - [facility] [address] [place] [address] Outr Resulting Lab, Provider Social History Tobacco Use Types Packs/Day Years [...] Procedure Name Priority Date/Time Associated Diagnosis Comments ZZCOVID-19 TEST [facility] LAB PCR Today 05/29/2021 10:20 EDT COVID-19 TESTING Routine 05/29/2021 10:2 0 EDT documented in this encounter Results * COVID-19 TEST [facility] LAB PCR (05/29/2021 10:20 EDT) Swab ENTIRE NASOPHARYNX / Unknown 05/29/2021 10:20 EDT 05/29/2021 21:30 EDT us Provider Outr Resulting Lab MICROBIOLOGY - GENER AL ORDERABLES Final Result [facility] [address] [place] [address] * COVID-19 TESTING (05/29/2021 10:20 EDT) COVID-19 rt-PCR Result Negative Negative 05/30/2021 17:13 EDT [facility] Comment: This test has not been FDA cleared or approved. This test has been authorized by FDA under an EUA for use by authorized laboratories. This test has been authorized only for detection of nucleic acid from 2019-nCoV, not for any other viruses or pathogens. This test is only authorized for the duration of the declaration that circumstances exist justifying the authorization of emergency use of in vitro diagnostic tests for detection and/or diagnosis of 2019-nCoV under section 564(b)(1) of Act, 21 U.S.C ?? 360bbb-3(b) (1), unless the authorization is terminated or revoked sooner. Negative results do not preclude 2019-nCoV infection and should not be used as the sole basis for treatment or other patient management decisions. Negative results must be combined with clinical observations, patient history, and epidemiological information. Testing was performed using the jw SARS-CoV-2 assay ([employer] on the Jw 6800 System Performing Lab Jw [address] [facility] Lab 05/30/2021 17:13 EDT [facility] Swab 05/29/2021 10:2 0 EDT 05/29/2021 21:30 EDT us Provider Outr Resulting Lab MICROBIOLOGY - GENER AL ORDERABLES Final Result [facility] [address] [place] [address] documented in this encounter Visit Diagnoses Not on filedocumented in this encounter Care Teams Product Picker Relationship Specialty Start Date End Date Gogo Monzon MD [address] [place] [address] PCP - General Family Medicine - Primary Care 03/03/23 documented as of this encounter
--- OUTSIDE RECORDS SUMMARY | 2024-08-26 13:36 | XMS_ITS | Encounter Summary ---
Author Organization [facility] Address [address] [place] [address] Care Team Providers Care Obstetrician Gynecologist Name Role Phone Gogo Monzon MD Primary Care Provider [phone] Reason for Visit * Reason Onset Date Comments Appointment Related 04/02/2023 Encounter Details Date Type Department Care Team (Late st Contact Info) Description 04/02/2023 Telephone [facility] Cancer Center Hematology & Oncology - [address] [address] Marcia Jackson PA-C [address] [place] [address], [address] [place] [address] Appointment Related Social History Tobacco [...] * Telephone Encounter - Ben Calvo - 04/02/2023 1231 EDT lmom for pt about new appt time now at 8 left PAC# documented in this encounter Plan of Treatment Not on file documented as of this encounter Visit Diagnoses Not on filedocumented in this encounter Care Teams Obstetrician Gynecologist Relationship Specialty Start Date End Date Gogo Monzon MD [address] [place] [address] PCP - General Family Medicine - Primary Care 03/03/23 documented as of this encounter
--- OUTSIDE RECORDS SUMMARY | 2024-08-26 13:36 | XMS_ITS | Encounter Summary ---
Author Organization [facility] Address [address] [place] [address] Care Team Providers Care Race Board Attendant Name Role Phone Gogo Monzon MD Primary Care Provider [phone] Reason for Referral * Vascular Lab (Routine) - Authorization Not Required Specialty Diagnoses / Procedures Referred By Contac t Referred To Contact Diagnoses Acute superficial venous thrombosis of lower extremity, right Procedures US LOWER VENOUS DUPLEX Marcia Jackson PA-C Phone: tel: fax: External Referral ID Status Reason Start Date Expiration Date Visits Requested Visits Authorized [id number] Authorization Not Required 03/06/2023 1 1 Reason for Visit * Reason Comments New Patient Visit * Consult (Routine) - Receiving Office to Obtain Authorization Specialty Diagnoses / Procedures Referred By Contact Referred To Contact Hematology and Oncology Diagnoses Phlebitis and thrombophlebitis of unspecified site Gogo Monzon MD [address] [place] [id number] Phone: tel:[phone] fax:[phone] [facility] Hematology & Oncology - [facility] [address] [place] [address] Phone: tel: fax: Referral ID Status Reason Start Date Expiration Date Visits Requested Visits Authorized [id number] Receiving Office to Obtain Authorization 1 1 Encounter Details Date Type Department Care Team (Late st Contact Info) Description 03/06/2023 14:20 EDT Telemedicine [facility] Hematology & Oncology - [address] [address] Marcia Jackson PA-C [address] [facility], [facility], [address] [place] [id number] Anemia, unspecified type (Primary Dx); Acute superficial venous thrombosis of lower extremity, right Social History Tobacco Use Types Packs/Day Years [...] * Patient Instructions* Marcia Jackson PA-C - 03/06/2023 14:20 EDT Hi Vishal Ramirez, it was so nice to meet you today. As discussed during our visit, my recommendations are as follows: - complete the 45 day course of Xarelto 10 mg once daily as prescribed - a lab order for a CBC was sent to [facility]- please call to arrange appt for this to be drawn prior toour next visit to recheck your hemoglobin - a repeat ultrasound order was sent to [facility]- to be completed on/around 03/20/23 as your Xarelto course is wrapping up - I agree with Vascular surgery consult at [facility]- IF they recommend surgery on your veins, I would like you to use Xarelto 10 mg once daily for 2 weeks AFTER the procedure to reduce the risk of blood clots. Otherwise, I do not think you need ongoing blood thinners beyond 45 days - other ways to reduce the risk of blood clots include- using compression to reduce pooling of blood in the legs, staying well hydrated, avoiding smoking, staying active, and maintaining a healthy weight - we will schedule a Zoom following the labs and ultrasound to discuss results - I recommend knee-high 20-30 mmHg compression socks: ---- You can type compression sock 20-30mmHg into the [employer]ool search bar ---- Select an option and click through the product photos to find a size chart based on calf circumference. Look for ones with a thick top band as these are less likely to roll down from the knee ---- Measure your calf circumference first thing in the morning when swelling is at a minimum. Use this measurement to purchase the correct size of compression socks online. ---- I recommend keeping them on your bedside table. Please apply first thing each morning (when swelling is at a minimum) and remove each night so your skin can breathe ---- Make sure you use the right amount of tension when pulling the socks up so that they stop below the knee (on the high calf) without rolling or folding them. ---- I recommend replacing these at least once every 6 months as the elastic can stretch out ---- they should help with swelling, heaviness, pain/discomfort when worn routinely, and particularly when standing, walking, or seated in a chair without legs elevated General reminders: Signs and symptoms of DVT [...] these symptoms, please seek emergency medical evaluation. Avoid NSAIDs, aspirin, grapefruit while on Xarelto Any trauma (particularly head trauma) on a blood thinner warrants immediate medical evaluation Feel free to contact me via [employer] or call the office if you have any questions/concerns. Thanks, Marcia Jackson PA-C documented in this encounter Progress Notes * Marcia Jackson PA-C - 03/06/2023 1420 EDT Images from the original note were not included. Thrombosis & Hemostasis Program (THP) Consult H&P Date of Service: 03/06/2023 PCP: Gogo Monzon Referring MD: Gogo Monzon Reason for Visit: superficial venous thrombosis of the RLE (Dx 02/04/23) Telemedicine visit information: The concept of ???Telemedicine?? [...] location of the patient : [place] The location of the provider: [place] Participants: patient, provider HPI: Vishal Ramirez is a 42 year old male with PMHx notable for varicose veins who presents to the THP clinic via telemedicine today for initial consultation regarding a superficial venous thrombosis in a branch off the R greater saphenous vein diagnosed 02/04/23 at [facility]. He reports he developed pain and swelling in his RLE around 01/29/23 Went initially to the [facility] ED and an ultrasound was ordered to be completed the following day- we was advised to use compression, warm compresses, elevation in the interim. He returned to the [facility] ED on 02/04/23 where he had lab work including a CBCd (notable for Hgb 13.3 and RDW 15.3) and CMP (unremarkable). A RLE Venous US was ordered and he returned when these capabilities were available on 02/04/23. RLE Venous US showed a 15 cm superficial venous thrombosis in a branch off the great saphenous vein from the mid thigh through the distal calf. He was advised to take Xarelto 10 mg once daily for 45 days by the ED. He was also told he needed to see Vascular surgery as an out patient for vein stripping and that he was at high risk for propagation into the deep venous system. His PCP also received the report at advised full dose Xarelto (with 3 week load) x 6 weeks. Due to the confusion, he also went to [facility] ED on 02/04/23 where the plan was confirmed to take Xarelto 10 mg once daily for 45 days ([facility] Hematology had been contacted by [facility]'s ED provider earlier that day). He saw his PCP on 02/05/23 who assured him he did not need to see Vascular urgently for a procedure and referred him to the THP clinic. He had a repeatRLE Venous US on 02/12/23 showing partial resolution of the SVT, measuring about 10 cm. He reports: - symptoms started 01/29/23- woke up and his varicose vein (present for 7 yrs, never symptomatic before) was swollen and hurt walk/run. Vein seemed to be a different color, mild swelling about R ankle and behind the knee. TTP. No CP, SOB, MARTEL. - Went to ED [facility] evening of 01/29/23 - was told possible blood clot but could not get US until the following Friday. In the meantime he wore compression, was elevating, he ran a race (50 km). Did not take ASA or NSAIDS. After the race, he did not feel his symptoms were any worse or changed. - 5 days after starting anticoagulation pain and swelling started to reduce. Currently: - still has tenderness in section of calf at times.Today, feels like his vein is 70% back to normal. Feels occasional pain after running he has tenderness on his medial R calf. Driving a lot irritates it (drove 7 hrs). Generalized swelling is much reduced and varicose veins much less pronounced. Currently feeling strong with his running-almost back to where he was. Has an appt with [facility] Mickie galo next month- Apr 09 - no bleeding side effects since starting Xarelto 3 months leading up to symptom onset: - no hospitalization/acute illness - no surgeries - no leg trauma, running a tremendous - no immobility - no long travel - no COVID infection or symptoms thereof - no testosterone supplementation - no abnormal weight loss, no night sweats - likely dehydrated- training hard the whole month of December for 100 mile event. Most miles he has done back to back over months. On January 29 was fairly dehdyrated due to alcohol use on January 28. Personal Hx of VTE: none Family Hx of VTE: none Sees PCP yearly for physicals ROS: ROS - pertinent positives and negatives as above Past Medical History: Patient has a past medical history of Asymptomatic varicose veins. Past Surgical History: Patient has a past surgical history that includes Vasectomy and [place] tooth extraction. Family History: Patient's Family History Problem Relation Age of Onset ??? Venous thrombosis Neg Hx Social History: Patient reports that he has never smoked. He quit smokeless tobacco use about 7 months ago. His smokeless tobacco use included chew. He reports current alcohol use of about 4.0 standard drinks of alcohol per week. He reports that he does not use drugs. 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 Lives in [facility]. Has a 15 year old daughter Medications: Outpatient Encounter Medications as of 03/06/2023: ??? rivaroxaban (XARELTO) 10 mg tablet tablet, 10 mg, oral, DAILY Allergies: Patient has No Known Allergies. Objective: There were no vitals taken for this visit. There is no height or weight on file to calculate BMI. Physical Exam: appears well, alert and oriented x 3, no cough, no respiratory distress, clear and fluent speech, no scleral icterus, no jaundice, no visible rashes. Labs at [facility] 02/04/23: Imagin02/04/23 RLE Venous US ([facility]) 02/12/23 RLE Venous US ([facility]) Assessment: Vishal Ramirez is a 42 year old male with PMHx notable for previously asymptomatic varicose veins whopresents to the [facility] clinic via telemedicine today for initial consultation regarding a superficial venous thrombosis in a branch off the R greater saphenous vein diagnosed 02/04/23 at [facility]. He was prescribed Xarelto 10 mg once daily for a 45 day course and notes improvement in his symptoms since starting it. He has not had any bleeding side effects. We reviewed the difference between superficial venous thromboses and DVTs. Discussed thrombosis risk factors including varicose veins (which lead to bveouns pooling/stasis) and male sex (higher risk of VTE recurrence). He does not have a prior personal nor family Hx of VTE. We reviewed that a 1-time superficial venous thrombosis is not followed by senior living anticoagulation, nor do we typically order a thrombophilia evaluation (especially without a family Hx of VTE) for such a presentation. If he develops recurrent superficial venous thrombosis, or a DVT/PE, we can reconsider thrombophilia testing but I think at this point it will likely be very low yield. I agree with Xarelto 10 mg once daily x 45 days and encouraged him to complete this course as prescribed. Following completion of the course, a repeat RLE Venous US should be done to assess for areasof chronic thrombosis as a result of this event and to establish his new baseline for future reference. I will place an order for that to be done at [facility] in about 2 weeks. We reviewed that during his treatment for the acute superficial venous thrombosis, he can advance his activity as tolerated (which has has done and reports he is almost back to full strength). I toldVishal that he can certainly run ultra-marathons in the future. I advised routine use of strong compression socks (at least 20-30 mmHg) and a non-urgent consult with Vascular surgery regarding symptomatic varicose veins (has an appt with [facility] Vascular 04/09/23). IF he is deemed a [...] healthy weight, staying active, staying well-hydrated, avoiding smoking, and reducing venous pooling with good compression socks. As an aside, I noted a mild normocytic anemia on his labs in the ED 02/04/23. We will repeat a CBC to ensure this has resolved. If not, he should follow up with his PCP to investigate possible causes of anemia. We will follow up in 3 weeks or so to review his CBC and repeat Venous US. Plan: - repeat CBC (order sent to [facility])- mild normocytic anemia last month (likely dilutional) - complete 45 day course of Xarelto 10 mg once daily as previously advised - at the end of the Xarelto course, repeat RLE Venous US to establish his new baseline (order sent to [facility]) - reviewed role of compression socks in reducing venous pooling (especially with concurrent varicose veins) - agree with Vascular referral ([facility] 04/09/23) regarding varicose vein management AFTER Xarelto course completes. If he has a vein procedure, would consider thromboprophylaxis using Xarelto 10 mg oncedaily for 2 weeks following that - reviewed non-pharmacologic ways to reduce the risk of VTE - Reviewed the signs and symptoms of DVT and PE. - Reviewed the importance of staying active, hydrated. Avoid NSAIDs, ASA products while on AC. Any head trauma warrants medical eval. - Follow up: ~3 weeks (to review CBC and repeat RLE Venous US at [facility] I appreciate the opportunity to participate in this patient's care. Please let me know if you have any questions or concerns. I can be reached at . Thank you. Marcia Jackson PA-C I spent a total of 70 minutes on the date of this encounter meeting with the patient and reviewing documentation/coordinating care as described in the above note. cc: Gogo Monzon documented in this encounter Plan of Treatment Scheduled Orders Name Type Priority Associated Diagnoses Orde r Schedule US LOWER VENOUS DUPLEX Vascular Ultrasound Routine Acute superficial venous thrombosis of lower extremity, right Expected: 03/20/2023 documented as of this encounter Visit Diagnoses Diagnosis Anemia, unspecified type- Primary Acute superficial venous thrombosis of lower extremity, right documented in this encounter Historical Medications * This list may reflect changes made after this encounter. rivaroxaban (XARELTO) 10 mg tablet tablet Take 1 Tablet by mouth daily. 04/11/2023 added in this encounter Care Teams Race Board Attendant Relationship Specialty Start Date End Date Gogo Monzon MD [address] [place] [address] PCP - General Family Medicine - Primary Care 03/03/23 documented as of this encounter
--- OUTSIDE RECORDS SUMMARY | 2024-08-26 13:36 | XMS_ITS | Encounter Summary ---
Author Organization [facility] Address [address] [place] [address] Care Team Providers Care Senior Test Analyst Name Role Phone Gogo Monzon MD Primary Care Provider [phone] Reason for Visit * Reason Onset Date Comments Other 04/10/2023 Encounter Details Date Type Department Care Team (Late st Contact Info) Description 04/10/2023 Telephone [facility] Hematology & Oncology - [address] [id number] Marcia Jackson PA-C [address] [place] [address], [address] [place] [address] Other Social History Tobacco Use Types Packs/Day Years [...] Encounter - Mary Jo Ng - 04/10/2023 0951 EDT Faxed request to get office note from 04/09/23 from Vascular dept álvaro. Mary Jo Ng 04/10/2023 9:52 documented in this encounter Plan of Treatment Not on file documented as of this encounter Visit Diagnoses Not on filedocumented in this encounter Care Teams Senior Test Analyst Relationship Specialty Start Date End Date Gogo Monzon MD [address] [place] [address] PCP - General Family Medicine - Primary Care 03/03/23 documented as of this encounter
--- OUTSIDE RECORDS SUMMARY | 2024-08-26 13:36 | XMS_ITS | Encounter Summary ---
Author Organization [facility] Address [address] [place] [address] Care Team Providers Care Blacksmith Hammer Operator Name Role Phone Gogo Monzon MD Primary Care Provider [phone] Encounter Details Date Type Department Care Team (Late st Contact Info) Description 03/13/2021 Lab Requisition [facility] Pathology & Laboratory Medicine - [facility] [address] [place] [address] Outr Resulting Lab, Provider Social History Tobacco [...] Procedure Name Priority Date/Time Associated Diagnosis Comments CHLAMYDIA/N. GONORRHOEAE AMPLIFIED NUCLEIC ACID Routine 03/12/2021 10:30 EDT documented in this encounter Results * CHLAMYDIA/N. GONORRHOEAE AMPLIFIED RNA (03/12/2021 10:30 EDT) Neisseria gonorrhoeae Result Negative Negative 03/14/2021 15:19 EDT [facility] Chlamydia trachomatis Result Negative Negative 03/14/2021 15:19 EDT [facility] Urine URINE / Unknown 03/12/2021 1 0:30 EDT 03/13/2021 16:46 EDT us Provider Outr Resulting Lab MICROBIOLOGY - GENER AL ORDERABLES Final Result [facility] [address] [place] [address] documented in this encounter Visit Diagnoses Not on filedocumented in this encounter Care Teams Blacksmith Hammer Operator Relationship Specialty Start Date End Date Gogo Monzon MD [address] [place], [place] PCP - General Family Medicine - Primary Care 03/03/23 documented as of this encounter
--- OUTSIDE RECORDS SUMMARY | 2024-08-26 13:36 | XMS_ITS | Encounter Summary ---
Author Organization [facility] Address [address] [place] [address] Care Team Providers Care Chemical Maker Name Role Phone Gogo Monzon MD Primary Care Provider [phone] Reason for Visit * Reason Onset Date Comments Appointment Related 04/04/2023 Encounter Details Date Type Department Care Team (Late st Contact Info) Description 04/04/2023 Telephone [facility] Hematology & Oncology - [address] [address] Marcia Jackson PA-C [address] [place] [address], [address] [place] [address] Appointment Related Social History Tobacco [...] encounter Miscellaneous Notes * Telephone Encounter - Beth Bentley - 04/04/2023 1105 EDT Spoke to pt, 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 * Telephone Encounter - Mariely Lau - 04/04/2023 1020 EDT Pt called back, 8:00 will not work for an appointment time, he will need to reschedule. Call dropped. Please call back to discuss. documented in this encounter Plan of Treatment Not on file documented as of this encounter Visit Diagnoses Not on filedocumented in this encounter Care Teams Chemical Maker Relationship Specialty Start Date End Date Gogo Monzon MD [address] [place] [address] PCP - General Family Medicine - Primary Care 03/03/23 documented as of this encounter
--- OUTSIDE RECORDS SUMMARY | 2024-08-26 13:36 | XMS_ITS | Encounter Summary ---
Author Organization [facility] Address [address] [place] [address] Care Team Providers Care Area Supervisor Name Role Phone Unavailable Primary Care Provider Unavailabl e Reason for Visit * (Routine/Next Available) - Receiving Office to Obtain Authorization Specialty Diagnoses / Procedures Referred By Contac t Referred To Contact Procedures US OUTSIDE IMAGES OTHER Imaging, External Referral ID Status Reason Start Date Expiration Date Visits Requested Visits Authorized [id number] Receiving Office to Obtain Authorization 02/18/2023 1 1 Encounter Details Date Type Department Care Team (Latest Contact Info) Description 02/04/2023 - 02/04/2023 23:59 EDT Hospital Encounter [facility] Secondary Reads [place] Discharge Disposition: Home or [...] Diagnosis Comments US OUTSIDE IMAGES OTHER Routine 02/04/2023 15:05 EDT documented in this encounter Results * US OUTSIDE IMAGES OTHER (02/04/2023 15:05 EDT) Narrative 02/18/2023 15:05 EDT This is a non-reportable exam. us External Imaging IMG OTHER IMAGING ORDERABLES Fi nal Result documented in this encounter Visit Diagnoses Not on filedocumented in this encounter
== END 2024-08-26 13:53 ==
LOC: DI 13:33
PROVIDERS: PCP Family Medicine; Visit Provider Podiatrist
DX: M76.821 Posterior tibial tendinitis, right leg (principal); M76.822 Posterior tibial tendinitis, left leg
CPT/HCPCS: 73620

== ENCOUNTER 2025-03-11 15:09 | Outpatient (CLI) | payer BC, SELFPAY ==
--- NOTE | 2025-03-11 11:13 | DI.RAD_ITS ---
Exam(s) XR WRIST LT COMPLETE EXAM: XR WRIST LT COMPLETE CLINICAL HISTORY: PAIN LT WRIST M25.532 S/P FALL. TECHNIQUE: 2D digital imaging was performed. Three views. COMPARISON: CR XR WRIST RT COMPLETE from 08/07/2020 FINDINGS: BONES: No acute fracture is present. No bony destructive lesion is seen. Prominent ulnar styloid. Benign cystic area at base of ulnar styloid. Minimal degenerative changes. JOINTS: The carpal bones are normally aligned. SOFT TISSUE: Normal. IMPRESSION: No acute abnormality. DATA REPOSITORY: RADIATION DOSE DELIVERED:
== END 2025-03-11 15:29 ==
LOC: DI 15:09
PROVIDERS: PCP Family Medicine; Visit Provider Family Medicine
DX: M25.532 Pain in left wrist (principal)
CPT/HCPCS: 73110